=== PATIENT | female | born 1975 | race Hispanic/Latino ===

== ENCOUNTER 2020-05-03 10:35 | Outpatient (CLI) | payer BC, MEDICAID ==
[2020-05-03] MEDS ORDERED: LACTATED RINGERS 1,000 ML IV SCH (11:15)
[2020-05-03 11:49] LABS: Bilirubin,Urine NEG (Negative); Color,Urine Yellow (Yellow)
[2020-05-03 11:50] LABS: Blood,Urine NEG (Negative); Protein,Urine <15 mg/dL mg/dL (Negative); Urobilinogen,Urine < 2.0 mg/dL (<2.0)
[2020-05-03 12:14] VITALS: BP 139/76
== END 2020-05-03 12:33 | disposition home or self-care (01) ==
LOC: TRG 10:35 → APU 10:36 → TRG 12:33
PROVIDERS: ATTEND Obstetrics & Gynecology
DX: O09.892 Supervision of other high risk pregnancies, second trimester (principal); Z3A.25 25 weeks gestation of pregnancy
CPT/HCPCS: 59025; 81001; 93005

== ENCOUNTER 2020-06-22 09:14 | Emergency (ER) | payer BC, MEDICAID ==
[2020-06-22 10:00] VITALS: BP 108/59
--- NOTE | 2020-06-22 11:52 | Emergency Department Report ---
Chief Complaint: Nosebleed Stated Complaint: NOSE BLEED/COUGHING UP BLOOD Time Seen by Provider: 06/22/20 11:48 - HPI History of Present Illness: 45-year-old female (; 32 weeks gestation) presents to the emergency department with complaints of a nosebleed occurring this morning. Patient states she began to feel a "tickle" in her throat, followed by 1 episode of hemoptysis in which she produced 1 blood clot, followed immediately by epistaxis from the left nostril. No preceding fall, trauma, injury. Bleeding resolved spontaneously. Patient called her interactive art director, who instructed her to come to the emergency department for further evaluation. Due to her advanced maternal age, patient has been taking 1 baby aspirin daily throughout her . Patient is currently asymptomatic. She is scheduled to return to her interactive art director in 4 days. Denies fever, chills, cough, sneezing, ear pain, sore throat, chest pain, shortness of breath, wheezing, abdominal pain, pelvic pain, vaginal bleeding. Denies all other complaints at this time. - ROS Review of Systems: GENERAL: Negative for fever. CARDIOVASCULAR: Negative for chest pain. PULMONARY: Negative for shortness of breath. GASTROINTESTINAL: Negative for abdominal pain. MUSCULOSKELETAL: Negative for back pain. NEUROLOGICAL: Negative for headache. INTEGUMENTARY: Negative for rash. - Exam Vital Signs: Vital Signs 06/22/20 09:57 Temperature 98.2 F Pulse Rate 94 H Respiratory 13 Rate Blood Pressure 108/59 O2 Sat by Pulse 97 Oximetry Physical Exam: General: Awake and alert. No acute distress. Head: Atraumatic, normocephalic. Eyes: EOMI. Pupils are equal and round. Normal sclera and conjunctiva. ENT: Oral mucosa is moist. Normal pharyngeal exam. Neck: Supple. No lymphadenopathy. Pulmonary: No respiratory distress. Clear to auscultation bilaterally. Cardiac: Regular rate and rhythm. Pulses are palpable and equal bilaterally. No lower extremity cyanosis or edema. Skin: Warm and dry. No rashes. Abdomen: Soft, non-tender. No guarding, rigidity, or rebound. Bowel sounds are normal. Abdomen size consistent with reported gestational age. Back: Normal alignment. No CVA tenderness. Extremities: Symmetrical. Full range of motion intact. Neurological: Alert and oriented, appropriately interactive, no focal deficits. Psych: Cooperative. Appropriate mood and affect. Speech is evenly metered. Thoughts are logically construed. MSE screening note: Focused history and physical exam performed. Due to findings the following was ordered: ED Medical Decision Making - Medical Decision Making Patient presents to the emergency department for evaluation at the recomme ndation of her interactive art director following an episode of epistaxis at home earlier this morning. Patient reportedly coughed up a small blood clot when the epistaxis occurred. There was no preceding trauma. She is currently asymptomatic without complaints. She is afebrile. Vital signs are stable. She specifically denies abdominal pain, vaginal bleeding, syncope. She states she has continued to sense movement consistent with baseline. Patient is scheduled to return to her interactive art director in 4 days. There is no clinical indication for further diagnostic work-up on an emergent basis at this time. Patient will be discharged home to follow-up with her interactive art director on an outpatient basis as scheduled early next week. Patient expressed understanding and is agreeable to plan of care. Strict return precautions provided. ED Disposition for MSE Clinical Impression: Epistaxis Disposition: TO HOME OR SELFCARE Is pt being admited?: No Does the pt Need Aspirin: No Condition: Stable Instructions: Nosebleed, [id number] Additional Instructions: Follow-up with your interactive art director on Thursday as scheduled. Return to the emergency department immediately for new or worsening symptoms. Referrals: JOSE ALFREDO CLIFTON MD [Staff Physician] - 3-5 Days Time of Disposition: 11:52
== END 2020-06-22 12:53 | disposition home or self-care (01) ==
LOC: ED 09:14
DX: O26.893 Other specified pregnancy related conditions, third trimester (principal); R04.0 Epistaxis; Z3A.32 32 weeks gestation of pregnancy; Z98.890 Other specified postprocedural states
CPT/HCPCS: 99281

== ENCOUNTER 2020-08-13 14:35 | Inpatient (IN) | payer BC, MEDICAID ==
--- NOTE | 2020-08-13 16:40 | History and Physical Report ---
History of Present Illness Date of examination: 08/13/20 (pt here for IOL as per recommendation of MFM) Chief complaint: here for IOL History of present illness: EDC Confirmation: 08/15/2020 Gestational Age: 10 weeks Past History : 5 Term Births: 4 Premature Births: 0 Living Children: 4 Para: 4 Mult. Births: 0 Prev : 0 Aborta: 0 Elect. Ab: 0 Spont. Ab: 0 Ectopics: 0 # 1 Delivery date: 1993 Weeks Gestation: term labor: no Delivery type: Anesthesia type: epidural Delivery location: [place] Sex: Female # 2 Delivery date: 1997 Weeks Gestation: term labor: no Delivery type: Anesthesia type: none Delivery location: [place] Sex: Female # 3 Delivery date: 2000 Weeks Gestation: term labor: no Delivery type: Anesthesia type: none Infant Sex: Female # 4 Delivery date: 2005 Weeks Gestation: term labor: no Delivery type: Anesthesia type: none Delivery location: [place] Sex: Male Past Medical History: Reviewed history and no changes required: Anxiety: No on medications G E R D Past Surgical History: Reviewed history and no changes required: Cholecystectomy: 2007 Past Medical History Anesthesia Complications: negative Anemia: negative Autoimmune Disorder: negative Bleeding Disorder: negative Blood Transfusions: negative Breast Disease: negative Diabetes: negative Heart Disease: negative Hypertension: negative Hepatitis/Liver Disease: negative Kidney Disease/UTI: negative Neurologic/Epilepsy/Migraines: negative Phlebitis/Varicosities: negative Psychiatric: negative Pulmonary Disease/Asthma: negative Thyroid Disease: negative Hospitalizations: negative Surgery (Non-prosecuting attorney): Cholecystectomy: 2007 Abnormal PAP: negative CASIMIRO Exposure: negative Infertility: negative Uterine Anomaly: positive, polpys Uterine Surgery (not C/S): negative Other Gynecologic Problems: negative Family Hx: HTN: Mother, father, sister CA: Father DM: Grandmother Infection History Hx of STD: chlamydia HIV Risk Eval: no Hepatitis B Risk Eval: low risk Personal hx. of genital herpes: no Partner hx. of genital herpes: no Rash, Viral, or Febrile illness since last LMP? no Varicella/Chicken Pox Status: Previous Disease TB Risk: no Genetic History ADVANCED MATERNAL AGE Congenital Heart Defect: Mom: no Dad: unknown Roselyn Disease: Mom: no Dad: unknown Thalassemia Mom: no Dad: unknown Neural Tube Defect Mom: no Dad: unknown Down's Syndrome Mom: no Dad: unknown Dominik-Sachs Mom: no Dad: unknown Sickle Cell Disease/Trait Mom: no Dad: unknown Hemophilia Mom: no Dad: unknown Muscular Dystrophy Mom: no Dad: unknown Cystic Fibrosis Mom: no Dad: unknown [place] Chorea Mom: no Dad: unknown Mental Retardation Mom: no Dad: unknown Fragile X Mom: no Dad: unknown Other Genetic/Chromosomal Disorder Mom: no Dad: unknown Child w/other defect Mom: no Dad: unknown Enviromental Exposures Enviromental Exposures Reviewed Xray Exposure: no Medication, drug, or alcohol use since LMP: no Chemical/Other Exposure: no Exposure to Cat Liter: no Hx of Parvovirus (Fifth Disease): no Occupational Exposure to Children: none Active Medications: None Current Allergies (reviewed today): No known allergies Past History Past Medical History: GERD Past Surgical History: cholecystectomy - Obstetrical History Expected Date of Delivery: 08/15/20 Actual Gestation: 39 Week(s) 5 Day(s) : 6 Para: 4 Hx # Term Pregnancies: 4 Number of Pregnancies: 0 Spontaneous Abortions: 1 Induced : 0 Number of Living Children: 4 Medications and Allergies Allergies Allergy/AdvReac Type Severity Reaction Status Date / Time No Known Allergies Allergy Verified 05/03/20 11:12 Home Medications Medication Instructions Recorded Confirmed Last Taken Type Aspirin [Aspirin BABY CHEW TAB] 81 mg PO QDAY 08/13/20 08/13/20 08/12/20 History Benadryl 1 tab PO PRN PRN 08/13/20 08/13/20 08/12/20 History Pepcid 1 tab PO PRN PRN 08/13/20 08/13/20 08/12/20 History Vit-Fe Fumar-FA [ 1 tab PO QDAY 08/13/20 08/13/20 08/12/20 History Vitamin] Xanax TAB 1 tab PO PRN PRN 08/13/20 08/13/20 08/10/20 History Review of Systems All systems: negative - Vital Signs Vital signs: Vital Signs Pulse Pulse Ox 92 H 96 08/13/20 15:46 08/13/20 15:46 Temp Pulse Resp BP Pulse Ox 98.7 F 92 H 18 98/55 97 08/13/20 15:48 08/13/20 15:48 08/13/20 15:48 08/13/20 15:48 08/13/20 15:48 - Physical Exam Breasts: Positive: deferred Cardiovascular: Regular rate, Normal S1, Normal S2 Lungs: Positive: Normal air movement Abdomen: Positive: normal appearance, soft, normal bowel sounds. Negative: distention, tenderness Genitourinary (Female): Positive: normal external genitalia Vulva: both: normal Vagina: Positive: normal moisture. Negative: discharge Cervix: Negative: lesion, discharge Uterus: Positive: normal size, normal contour Adnexa: both: normal Anus/Rectum: Positive: normal perianal skin, heme negative. Negative: rectal mass, hemorrhoids Extremities: Positive: normal Deep Tendon Reflex Grade: Normal +2 - Obstetrical FHR: category 1 Uterine Contraction Monitor Mode: External Cervical Dilatation: 1 (per Nereyda RN) Cervical Effacement Percentage: 50 station: -3 Uterine Contraction Pattern: Irregular Uterine Tone Measurement Phase: Resting Uterine Contraction Intensity: Mild Results All other labs normal. GBS Negative HBsAg Screen Negative Negative *1 RPR Non Reactive Non Reactive *2 Rubella Antibodies, IgG [L] <0.90 index Immune >0.99 *3 Non-immune <0.90 Equivocal 0.90 - 0.99 Immune >0.99 ABO Grouping B *4 Rh Factor Negative Received Rhogam -- @ 28w Please note: Prior records for this patient's ABO / Rh type are not available for additional verification. Antibody Screen Negative Negative *6 WBC 7.4 x10E3/uL 3.4-10.8 *7 RBC 4.41 x10E6/uL 3.77-5.28 *8 Hemoglobin 12.7 g/dL 11.1-15.9 *9 Hematocrit 37.8 % 34.0-46.6 *10 MCV 86 fL 79-97 *11 MCH 28.8 pg 26.6-33.0 *12 MCHC 33.6 g/dL 31.5-35.7 *13 RDW 13.7 % 11.7-15.4 *14 Platelets 256 x10E3/uL 150-450 *15 Neutrophils 60 % Not Estab. *16 Lymphs 30 % Not Estab. *17 Monocytes 7 % Not Estab. *18 Eos 2 % Not Estab. *19 Basos 1 % Not Estab. *20 Neutrophils (Absolute) 4.5 x10E3/uL 1.4-7.0 *21 Lymphs (Absolute) 2.2 x10E3/uL 0.7-3.1 *22 Monocytes(Absolute) 0.5 x10E3/uL 0.1-0.9 *23 Eos (Absolute) 0.1 x10E3/uL 0.0-0.4 *24 Baso (Absolute) 0.0 x10E3/uL 0.0-0.2 *25 ! Immature Granulocytes 0 % Not Estab. *26 ! Immature Grans (Abs) 0.0 x10E3/uL 0.0-0.1 *27 Tests: (2) HIV Ag/Ab with Reflex ([id number]) HIV Screen 4th Generation wRfx Non Reactive Non Reactive *28 Tests: (3) HCV Ab w/Rflx to Verification ([id number]) ! HCV Ab <0.1 s/co ratio 0.0-0.9 *29 Tests: (4) Comment: ([id number]) ! Comment: SPR[facility] *30 Non reactive HCV antibody screen is consistent with no HCV infection, unless recent infection is suspected or other evidence exists to indicate HCV infection. Effective April 09, 2020 HCV Ab w/Rflx to Verification will be made non-orderable as it no longer aligns with clinical guidelines for the detection of HCV infection. Current guidelines recommend the use of a HCV reflex panel that includes antibody testing with reflex of positive specimens to HCV RNA testing. [facility] offers order code #[id number] HCV Antibody reflex to Qualitative [facility]. Tests: (5) Urine Culture, Routine ([id number]) Urine Culture, Routine Final report (C) *31 Tests: (6) Result ([id number]) ! Result 1 No growth (C) *32 Assessment and Plan 45yo @ 39w5d for IOL Will use Cervidil tonight. GBS negative All orders in EMR Dr Hernandes aware - Patient Problems (1) Rh negative, maternal Onset Date: ~08/13/20 Current Visit: Yes Status: Acute Qualifiers: Trimester: third trimester Qualified Code(s): O26.893 - Other specified related conditions, third trimester; Z67.91 - Unspecified blood type, Rh negative Plan to address problem: Rhogam given @ 28w gestation Blood type of NB to determine need post delivery (2) Rubella non-immune status, antepartum Onset Date: ~08/13/20 Current Visit: Yes Status: Acute Plan to address problem: Recommend MMR post delivery (3) GERD (gastroesophageal reflux disease) Onset Date: ~08/13/20 Current Visit: Yes Status: Acute Qualifiers: Esophagitis presence: esophagitis presence not specified Qualified Code(s): K21.9 - Gastro-esophageal reflux disease without esophagitis Plan to address problem: Pt did not take her pepcid today order for QD pepcid in EMR (4) Advanced maternal age, 40 years or greater Onset Date: ~08/13/20 Current Visit: Yes Status: Acute Plan to address problem: [facility] pt to be induced @ this gestation due to AMA (5) BMI 45.0-49.9, adult Onset Date: ~08/13/20 Current Visit: Yes Status: Acute Plan to address problem: Pt has gained 46+ pounds with this
[2020-08-13] MEDS ORDERED: miSOPROStol 200 MCG TAB PR PRN (16:42)
[2020-08-13] MEDS ORDERED: DINOPROSTONE 10 MG VAG SUPP VG NR (16:42)
[2020-08-13] MEDS ORDERED: OXYTOCIN 10 UNIT/1 ML INJ IM PRN (16:42)
[2020-08-13] MEDS ORDERED: ONDANSETRON 4 MG/2 ML INJ IV PRN (16:42)
[2020-08-13] MEDS ORDERED: NalbUPHINE 10 MG/1 ML INJ IV PRN (16:42)
[2020-08-13] MEDS ORDERED: fentaNYL 100 MCG/2 ML INJ IV PRN (16:42)
[2020-08-13] MEDS ORDERED: MINERAL OIL 30 ML ORAL LIQD PO PRN (16:42)
[2020-08-13] MEDS ORDERED: LOPERAMIDE 2 MG CAP PO PRN (16:42)
[2020-08-13] MEDS ORDERED: ACETAMINOPHEN 325 MG TAB PO PRN (16:42)
[2020-08-13] MEDS ORDERED: LIDOCAINE (2%) 20 MG/1 ML VIAL 20 ML MDV INFILTRATI ONE (16:42)
[2020-08-13] MEDS ORDERED: TERBUTALINE 1 MG/1 ML INJ SUB-Q PRN (16:42)
[2020-08-13] MEDS ORDERED: METHYLERGONOVINE MALEATE 0.2 MG/ML VIAL IM PRN (16:42)
[2020-08-13] MEDS ORDERED: ePHEDrine SULFATE 50 MG/1 ML INJ IV PRN (16:42)
[2020-08-13] MEDS ORDERED: CARBOPROST TROMETHAMINE 250 MCG/1 ML INJ IM PRN (16:42)
[2020-08-13] MEDS ORDERED: OXYTOCIN DRIP 30 UNITS/500 ML BAG IV SCH ×2 (17:00)
[2020-08-13] MEDS: LACTATED RINGERS 1,000 ML IV SCH (17:03)
[2020-08-13] MEDS: FAMOTIDINE 20 MG/2 ML INJ IV SCH (17:03)
[2020-08-13 17:28] LABS: Hematocrit 32.2 % (30.3-42.9); Hemoglobin 10.9 gm/dl (10.1-14.3); Mean Corpuscular HGB Conc 34 % (30-34); Mean Corpuscular Volume 77 fl (79-97); Platelet Count 287 K/mm3 (140-440); Red Cell Distribution Width 15.7 % (13.2-15.2)
[2020-08-13] MEDS: diphenhydrAMINE 25 MG CAP PO PRN (21:21)
--- NOTE | 2020-08-14 06:39 | Progress Note ---
Assessment and Plan pt had cervidil removed @ 0500. Pt states she is having some irregular ctx. FHR Cat 1. P: AM care, diet, start pitocin per protocol. Pt is anxious to get her epidural. Explained she has to be in labor, cervical chg, SROM. Spoke with Nichole RN @ POC - Patient Problems (1) Rh negative, maternal Onset Date: ~08/13/20 Current Visit: Yes Status: Acute Qualifiers: Trimester: third trimester Qualified Code(s): O26.893 - Other specified related conditions, third trimester; Z67.91 - Unspecified blood type, Rh negative (2) Rubella non-immune status, antepartum Onset Date: ~08/13/20 Current Visit: Yes Status: Acute (3) GERD (gastroesophageal reflux disease) Onset Date: ~08/13/20 Current Visit: Yes Status: Acute Qualifiers: Esophagitis presence: esophagitis presence not specified Qualified Code(s): K21.9 - Gastro-esophageal reflux disease without esophagitis (4) Advanced maternal age, 40 years or greater Onset Date: ~08/13/20 Current Visit: Yes Status: Acute (5) BMI 45.0-49.9, adult Onset Date: ~08/13/20 Current Visit: Yes Status: Acute (6) Dizziness Onset Date: ~08/14/20 Current Visit: Yes Status: Acute Plan to address problem: Pt c/o dizziness this morning that is"in my head" Pt states she can be up and walks w/o difficulty. Instructed pt to not be OOB w/o assistance. Pt thinks it is occurring because of the hormones of . Pt did c/o being dizzy prior to admission. Offered an antihistamine if poss fluid inner ear. Pt denies vertigo. Will consult with Dr Piedra Subjective - Subjective Date of service: 08/14/20 (pt c/o dizziness and anxiety) Principal diagnosis: IUP @ 39w5d IOL Interval history: EDC Confirmation: 08/15/2020 Gestational Age: 10 weeks Past History : 5 Term Births: 4 Premature Births: 0 Living Children: 4 Para: 4 Mult. Births: 0 Prev : 0 Aborta: 0 Elect. Ab: 0 Spont. Ab: 0 Ectopics: 0 # 1 Delivery date: 1993 Weeks Gestation: term labor: no Delivery type: Anesthesia type: epidural Delivery location: [place] [facility] Sex: Female # 2 Delivery date: 1997 Weeks Gestation: term labor: no Delivery type: Anesthesia type: none Delivery location: [place] [facility] Sex: Female # 3 Delivery date: 2000 Weeks Gestation: term labor: no Delivery type: Anesthesia type: none Sex: Female # 4 Delivery date: 2006 Weeks Gestation: term labor: no Delivery type: Anesthesia type: none Delivery location: [place] [facility] Sex: Male Past Medical History: Reviewed history and no changes required: Anxiety: No on medications G E R D Past Surgical History: Reviewed history and no changes required: Cholecystectomy: 2007 Past Medical History Anesthesia Complications: negative Anemia: negative Autoimmune Disorder: negative Bleeding Disorder: negative Blood Transfusions: negative Breast Disease: negative Diabetes: negative Heart Disease: negative Hypertension: negative Hepatitis/Liver Disease: negative Kidney Disease/UTI: negative Neurologic/Epilepsy/Migraines: negative Phlebitis/Varicosities: negative Psychiatric: negative Pulmonary Disease/Asthma: negative Thyroid Disease: negative Hospitalizations: negative Surgery (Non-air export agent): Cholecystectomy: 2007 Abnormal PAP: negative CASIMIRO Exposure: negative Infertility: negative Uterine Anomaly: positive, polpys Uterine Surgery (not C/S): negative Other Gynecologic Problems: negative Family Hx: HTN: Mother, father, sister CA: Father DM: Grandmother Infection History Hx of STD: chlamydia HIV Risk Eval: no Hepatitis B Risk Eval: low risk Personal hx. of genital herpes: no Partner hx. of genital herpes: no Rash, Viral, or Febrile illness since last LMP? no Varicella/Chicken Pox Status: Previous Disease TB Risk: no Genetic History ADVANCED MATERNAL AGE Congenital Heart Defect: Mom: no Dad: unknown Roselyn Disease: Mom: no Dad: unknown Thalassemia Mom: no Dad: unknown Neural Tube Defect Mom: no Dad: unknown Down's Syndrome Mom: no Dad: unknown Dominik-Sachs Mom: no Dad: unknown Sickle Cell Disease/Trait Mom: no Dad: unknown Hemophilia Mom: no Dad: unknown Muscular Dystrophy Mom: no Dad: unknown Cystic Fibrosis Mom: no Dad: unknown Maricao Chorea Mom: no Dad: unknown Mental Retardation Mom: no Dad: unknown Fragile X Mom: no Dad: unknown Other Genetic/Chromosomal Disorder Mom: no Dad: unknown Child w/other defect Mom: no Dad: unknown Enviromental Exposures Enviromental Exposures Reviewed Xray Exposure: no Medication, drug, or alcohol use since LMP: no Chemical/Other Exposure: no Exposure to Cat Liter: no Hx of Parvovirus (Fifth Disease): no Occupational Exposure to Children: none Active Medications: None Current Allergies (reviewed today): No known allergies Patient reports: movement normal Objective - Vital Signs Vital Signs: Vital Signs - 12hr 08/13/20 08/13/20 08/13/20 18:55 19:02 19:04 Temperature Pulse Rate 65 97 H 109 H Respiratory Rate Blood Pressure 115/59 O2 Sat by Pulse 87 96 Oximetry 08/13/20 08/13/20 08/13/20 19:38 20:40 20:45 Temperature 98.3 F Pulse Rate 89 94 H Respiratory 12 Rate Blood Pressure 109/60 O2 Sat by Pulse 100 97 97 Oximetry 08/13/20 08/13/20 08/13/20 20:50 20:55 21:00 Temperature Pulse Rate 87 86 86 Respiratory Rate Blood Pressure O2 Sat by Pulse 97 96 96 Oximetry 08/13/20 08/13/20 08/13/20 21:05 21:10 21:15 Temperature Pulse Rate 95 H 89 86 Respiratory Rate Blood Pressure O2 Sat by Pulse 97 96 96 Oximetry 08/13/20 08/13/20 08/13/20 21:20 21:25 21:30 Temperature Pulse Rate 85 85 89 Respiratory Rate Blood Pressure O2 Sat by Pulse 96 97 96 Oximetry 08/13/20 08/13/20 08/13/20 21:32 21:35 21:40 Temperature Pulse Rate 88 88 88 Respiratory Rate Blood Pressure O2 Sat by Pulse 94 96 94 Oximetry 08/13/20 08/13/20 08/13/20 21:45 21:50 21:57 Temperature Pulse Rate 86 93 H 90 Respiratory Rate Blood Pressure O2 Sat by Pulse 94 94 97 Oximetry 08/13/20 08/13/20 08/13/20 22:02 22:07 22:12 Temperature Pulse Rate 93 H 93 H 90 Respiratory Rate Blood Pressure O2 Sat by Pulse 95 96 96 Oximetry 08/13/20 08/13/20 08/13/20 22:17 22:19 22:22 Temperature Pulse Rate 98 H 86 88 Respiratory Rate Blood Pressure O2 Sat by Pulse 95 94 95 Oximetry 08/13/20 08/13/20 08/13/20 22:25 22:27 22:32 Temperature Pulse Rate 86 86 91 H Respiratory Rate Blood Pressure O2 Sat by Pulse 94 96 95 Oximetry 08/13/20 08/13/20 08/13/20 22:37 22:38 22:42 Temperature Pulse Rate 87 87 84 Respiratory Rate Blood Pressure O2 Sat by Pulse 95 94 95 Oximetry 08/13/20 08/13/20 08/13/20 22:46 22:47 22:52 Temperature Pulse Rate 85 84 83 Respiratory Rate Blood Pressure O2 Sat by Pulse 94 95 94 Oximetry 08/13/20 08/13/20 08/13/20 22:55 22:57 23:01 Temperature Pulse Rate 82 85 80 Respiratory Rate Blood Pressure O2 Sat by Pulse 94 95 94 Oximetry 08/13/20 08/13/20 08/13/20 23:02 23:07 23:12 Temperature Pulse Rate 83 85 88 Respiratory Rate Blood Pressure O2 Sat by Pulse 94 96 97 Oximetry 08/13/20 08/13/20 08/13/20 23:17 23:22 23:30 Temperature Pulse Rate 91 H 84 40 L Respiratory Rate Blood Pressure O2 Sat by Pulse 96 96 85 Oximetry 08/13/20 08/13/20 08/13/20 23:35 23:40 23:45 Temperature Pulse Rate 92 H 91 H 83 Respiratory Rate Blood Pressure O2 Sat by Pulse 96 96 96 Oximetry 08/13/20 08/13/20 08/14/20 23:50 23:55 00:00 Temperature Pulse Rate 83 88 78 Respiratory Rate Blood Pressure O2 Sat by Pulse 96 96 97 Oximetry 08/14/20 08/14/20 08/14/20 00:05 00:10 00:15 Temperature Pulse Rate 76 76 81 Respiratory Rate Blood Pressure O2 Sat by Pulse 96 96 95 Oximetry 08/14/20 08/14/20 08/14/20 00:17 00:20 00:25 Temperature Pulse Rate 90 69 71 Respiratory Rate Blood Pressure O2 Sat by Pulse 94 96 96 Oximetry 08/14/20 08/14/20 08/14/20 00:30 00:35 00:40 Temperature Pulse Rate 81 77 78 Respiratory Rate Blood Pressure O2 Sat by Pulse 95 97 96 Oximetry 08/14/20 08/14/20 08/14/20 00:45 00:48 00:50 Temperature Pulse Rate 74 79 74 Respiratory Rate Blood Pressure O2 Sat by Pulse 96 94 96 Oximetry 08/14/20 08/14/20 08/14/20 00:55 01:00 01:05 Temperature Pulse Rate 79 79 77 Respiratory Rate Blood Pressure O2 Sat by Pulse 95 95 95 Oximetry 08/14/20 08/14/20 08/14/20 01:10 01:15 01:20 Temperature Pulse Rate 78 79 76 Respiratory Rate Blood Pressure O2 Sat by Pulse 96 96 96 Oximetry 08/14/20 08/14/20 08/14/20 01:25 01:26 01:30 Temperature Pulse Rate 82 79 80 Respiratory Rate Blood Pressure O2 Sat by Pulse 95 94 95 Oximetry 08/14/20 08/14/20 08/14/20 01:33 01:35 01:40 Temperature Pulse Rate 81 80 78 Respiratory Rate Blood Pressure O2 Sat by Pulse 94 95 95 Oximetry 08/14/20 08/14/20 08/14/20 01:45 01:49 01:50 Temperature Pulse Rate 78 97 H 83 Respiratory Rate Blood Pressure O2 Sat by Pulse 95 94 95 Oximetry 08/14/20 08/14/20 08/14/20 01:54 01:55 01:59 Temperature Pulse Rate 75 78 77 Respiratory Rate Blood Pressure O2 Sat by Pulse 94 94 94 Oximetry 08/14/20 08/14/20 08/14/20 02:00 02:05 02:10 Temperature Pulse Rate 77 75 71 Respiratory Rate Blood Pressure O2 Sat by Pulse 95 94 96 Oximetry 08/14/20 08/14/20 08/14/20 02:12 02:15 02:18 Temperature Pulse Rate 75 75 75 Respiratory Rate Blood Pressure O2 Sat by Pulse 94 95 94 Oximetry 08/14/20 08/14/20 08/14/20 02:20 02:24 02:25 Temperature Pulse Rate 70 79 93 H Respiratory Rate Blood Pressure O2 Sat by Pulse 95 94 97 Oximetry 08/14/20 08/14/20 08/14/20 02:30 02:35 02:40 Temperature Pulse Rate 79 82 83 Respiratory Rate Blood Pressure O2 Sat by Pulse 96 97 97 Oximetry 08/14/20 08/14/20 08/14/20 02:45 02:50 02:57 Temperature Pulse Rate 82 84 101 H Respiratory Rate Blood Pressure O2 Sat by Pulse 96 97 98 Oximetry 08/14/20 08/14/20 08/14/20 03:02 03:07 03:12 Temperature Pulse Rate 86 82 82 Respiratory Rate Blood Pressure O2 Sat by Pulse 95 96 97 Oximetry 08/14/20 08/14/20 08/14/20 03:17 03:21 03:22 Temperature Pulse Rate 85 77 78 Respiratory Rate Blood Pressure O2 Sat by Pulse 96 94 95 Oximetry 08/14/20 08/14/20 08/14/20 03:27 03:32 03:37 Temperature Pulse Rate 79 77 76 Respiratory Rate Blood Pressure O2 Sat by Pulse 94 94 95 Oximetry 08/14/20 08/14/20 08/14/20 03:38 03:42 03:45 Temperature Pulse Rate 74 76 87 Respiratory Rate Blood Pressure O2 Sat by Pulse 94 94 94 Oximetry 08/14/20 08/14/20 08/14/20 03:47 03:51 03:52 Temperature Pulse Rate 84 99 H 89 Respiratory Rate Blood Pressure O2 Sat by Pulse 96 91 93 Oximetry 08/14/20 08/14/20 08/14/20 03:57 04:02 04:07 Temperature Pulse Rate 75 76 72 Respiratory Rate Blood Pressure O2 Sat by Pulse 96 96 95 Oximetry 08/14/20 08/14/20 08/14/20 04:12 04:17 04:22 Temperature Pulse Rate 71 73 74 Respiratory Rate Blood Pressure O2 Sat by Pulse 95 95 96 Oximetry 08/14/20 08/14/20 08/14/20 04:27 04:32 04:35 Temperature Pulse Rate 69 73 75 Respiratory Rate Blood Pressure O2 Sat by Pulse 96 95 94 Oximetry 08/14/20 08/14/20 08/14/20 04:37 04:42 04:43 Temperature Pulse Rate 86 81 86 Respiratory Rate Blood Pressure O2 Sat by Pulse 96 96 93 Oximetry 08/14/20 08/14/20 08/14/20 04:47 04:52 04:57 Temperature Pulse Rate 91 H 81 94 H Respiratory Rate Blood Pressure O2 Sat by Pulse 98 98 98 Oximetry 08/14/20 08/14/20 08/14/20 05:02 05:07 05:12 Temperature Pulse Rate 99 H 94 H 98 H Respiratory Rate Blood Pressure O2 Sat by Pulse 99 98 99 Oximetry 08/14/20 08/14/20 08/14/20 05:17 05:22 05:23 Temperature Pulse Rate 87 89 86 Respiratory Rate Blood Pressure 123/71 O2 Sat by Pulse 97 98 Oximetry 08/14/20 08/14/20 08/14/20 05:27 05:38 05:43 Temperature Pulse Rate 81 83 89 Respiratory Rate Blood Pressure O2 Sat by Pulse 98 97 96 Oximetry 08/14/20 08/14/20 08/14/20 05:45 05:48 05:52 Temperature Pulse Rate 80 96 H 90 Respiratory Rate Blood Pressure O2 Sat by Pulse 94 95 94 Oximetry 08/14/20 08/14/20 08/14/20 05:53 05:58 06:03 Temperature Pulse Rate 91 H 90 84 Respiratory Rate Blood Pressure O2 Sat by Pulse 96 95 96 Oximetry 08/14/20 08/14/20 08/14/20 06:08 06:13 06:16 Temperature Pulse Rate 85 88 88 Respiratory Rate Blood Pressure O2 Sat by Pulse 96 96 94 Oximetry 08/14/20 08/14/20 08/14/20 06:18 06:23 06:28 Temperature Pulse Rate 86 84 91 H Respiratory Rate Blood Pressure O2 Sat by Pulse 96 96 93 Oximetry 08/14/20 06:33 Temperature Pulse Rate 97 H Respiratory Rate Blood Pressure O2 Sat by Pulse 97 Oximetry - Exam Breasts: deferred Cardiovascular: Regular rate Lungs: Normal air movement Abdomen: Present: normal appearance, soft. Absent: distention, tenderness Uterus: Present: normal FHR: auscultation normal, category 1 Uterine Contraction Monitor Mode: External Uterine Contraction Pattern: Irregular Uterine Tone Measurement Phase: Resting Uterine Contraction Intensity: Mild Extremities: normal Deep Tendon Reflex Grade: Normal +2 - Labs Labs: Abnormal Labs 08/13/20 15:45 MCV 77 L MCH 26 L RDW 15.7 H Laboratory Results - last 24 hr 08/13/20 08/13/20 08/13/20 15:45 15:45 15:45 WBC 10.5 RBC 4.20 Hgb 10.9 Hct 32.2 MCV 77 L MCH 26 L MCHC 34 RDW 15.7 H Plt Count 287 Syphilis IgG Antibody Nonreactive Blood Type B NEGATIVE Antibody Screen Positive Antibody Identification Anti-D (Passively Aquired)
[2020-08-14] MEDS: PSEUDOEPHEDRINE 30 MG TAB PO PRN ×2 (06:54→15:43)
[2020-08-14] MEDS ORDERED: DINOPROSTONE 10 MG VAG SUPP VG NR (09:00)
[2020-08-14] MEDS ORDERED: OXYTOCIN DRIP 30 UNITS/500 ML BAG IV SCH (09:00)
[2020-08-14] MEDS: LACTATED RINGERS 1,000 ML IV SCH (10:24)
[2020-08-14] MEDS: FAMOTIDINE 20 MG/2 ML INJ IV SCH (10:25)
[2020-08-14] MEDS ORDERED: ACETAMINOPHEN 325 MG TAB PO PRN (16:46)
[2020-08-14] MEDS ORDERED: ACETAMINOPHEN 500 MG TAB PO PRN (17:00)
--- NOTE | 2020-08-14 19:03 | Ultrasound Report ---
US OB limited INDICATION / CLINICAL INFORMATION: presentation. COMPARISON: None available. FINDINGS: lie is currently cephalic. Heart rate is 178. IMPRESSION: 1. lie is cephalic. Signer Name: Lazaro Jennings MD Signed: 08/14/2020 6:59 PM Workstation Name: [id number]
--- NOTE | 2020-08-14 19:59 | Progress Note ---
Assessment and Plan Again discussed serial induction of labor. Patient second Cervidil was placed at 11 AM to be removed at 11 PM. Patient is very anxious about Pitocin induction and augmentation. Options for induction were reviewed including but not limited to, another Cervidil, Cytotec and low-dose Pitocin. Patient very anxious with about pitocin d/t a bad experience she had with her last delivery and pitocin. Discussed erratic, uncontrolled response with Cytotec that would possibly make this method for suboptimal and lead to increased risk. She has had 2 cervidil w/o cervical change. This limits options for IOL. She was informed I will need to proceed with a c/s and will re-evaluate her after the procedure is complete. She voiced understanding - Patient Problems (1) 39 weeks gestation of Current Visit: Yes Status: Acute (2) Advanced maternal age, 40 years or greater Onset Date: ~08/13/20 Current Visit: Yes Status: Chronic (3) Anxiety Current Visit: Yes Status: Chronic (4) BMI 45.0-49.9, adult Onset Date: ~08/13/20 Current Visit: Yes Status: Chronic (5) Dizziness Onset Date: ~08/14/20 Current Visit: Yes Status: Acute (6) Rh negative, maternal Onset Date: ~08/13/20 Current Visit: Yes Status: Acute Qualifiers: Trimester: third trimester Qualified Code(s): O26.893 - Other specified related conditions, third trimester; Z67.91 - Unspecified blood type, Rh negative (7) Rubella non-immune status, antepartum Onset Date: ~08/13/20 Current Visit: Yes Status: Acute Subjective - Subjective Date of service: 08/14/20 Principal diagnosis: IUP @ 39w6d IOL for AMA per [facility] Patient reports: movement normal Objective - Vital Signs Vital Signs: Vital Signs - 12hr 08/14/20 08/14/20 08/14/20 07:27 07:30 07:32 Temperature 98.1 F Pulse Rate 90 91 H Respiratory 16 Rate Blood Pressure O2 Sat by Pulse 97 96 Oximetry 08/14/20 08/14/20 08/14/20 07:37 07:42 07:44 Temperature Pulse Rate 91 H 93 H 92 H Respiratory Rate Blood Pressure O2 Sat by Pulse 96 96 94 Oximetry 08/14/20 08/14/20 08/14/20 07:47 07:50 07:52 Temperature Pulse Rate 95 H 96 H 92 H Respiratory Rate Blood Pressure O2 Sat by Pulse 95 94 96 Oximetry 08/14/20 08/14/20 08/14/20 07:57 08:02 08:07 Temperature Pulse Rate 96 H 96 H 89 Respiratory Rate Blood Pressure O2 Sat by Pulse 96 95 98 Oximetry 08/14/20 08/14/20 08/14/20 08:12 08:17 08:22 Temperature Pulse Rate 95 H 96 H 94 H Respiratory Rate Blood Pressure O2 Sat by Pulse 96 97 98 Oximetry 08/14/20 08/14/20 08/14/20 08:27 08:32 08:37 Temperature Pulse Rate 104 H 105 H 97 H Respiratory Rate Blood Pressure O2 Sat by Pulse 97 97 97 Oximetry 08/14/20 08/14/20 08/14/20 08:42 08:47 08:52 Temperature Pulse Rate 95 H 91 H 101 H Respiratory Rate Blood Pressure O2 Sat by Pulse 96 96 97 Oximetry 08/14/20 08/14/20 08/14/20 08:57 09:02 09:07 Temperature Pulse Rate 101 H 108 H 109 H Respiratory Rate Blood Pressure O2 Sat by Pulse 96 97 96 Oximetry 08/14/20 08/14/20 08/14/20 09:12 09:17 09:22 Temperature Pulse Rate 114 H 107 H 111 H Respiratory Rate Blood Pressure O2 Sat by Pulse 96 95 94 Oximetry 08/14/20 08/14/20 08/14/20 09:27 09:31 09:32 Temperature Pulse Rate 106 H 102 H 101 H Respiratory Rate Blood Pressure O2 Sat by Pulse 97 94 95 Oximetry 08/14/20 08/14/20 08/14/20 09:37 09:44 09:47 Temperature Pulse Rate 101 H 95 H 112 H Respiratory Rate Blood Pressure O2 Sat by Pulse 96 96 94 Oximetry 08/14/20 08/14/20 08/14/20 09:49 09:54 09:59 Temperature Pulse Rate 115 H 102 H 102 H Respiratory Rate Blood Pressure O2 Sat by Pulse 96 96 97 Oximetry 08/14/20 08/14/20 08/14/20 10:04 10:09 10:14 Temperature Pulse Rate 99 H 98 H 98 H Respiratory Rate Blood Pressure O2 Sat by Pulse 96 94 96 Oximetry 08/14/20 08/14/20 08/14/20 10:15 10:19 10:24 Temperature 97.4 F L Pulse Rate 99 H 105 H Respiratory Rate Blood Pressure O2 Sat by Pulse 97 97 Oximetry 08/14/20 08/14/20 08/14/20 10:29 10:34 10:35 Temperature Pulse Rate 102 H 95 H 104 H Respiratory Rate Blood Pressure O2 Sat by Pulse 96 97 93 Oximetry 08/14/20 08/14/20 08/14/20 10:39 10:44 10:49 Temperature Pulse Rate 105 H 100 H 98 H Respiratory Rate Blood Pressure O2 Sat by Pulse 96 97 96 Oximetry 08/14/20 08/14/20 08/14/20 10:54 10:59 11:04 Temperature Pulse Rate 105 H 103 H 105 H Respiratory Rate Blood Pressure O2 Sat by Pulse 97 97 97 Oximetry 08/14/20 08/14/20 08/14/20 11:09 11:14 11:19 Temperature Pulse Rate 98 H 99 H 99 H Respiratory Rate Blood Pressure O2 Sat by Pulse 97 96 97 Oximetry 08/14/20 08/14/20 08/14/20 11:24 11:29 11:34 Temperature Pulse Rate 102 H 96 H 96 H Respiratory Rate Blood Pressure O2 Sat by Pulse 97 95 96 Oximetry 08/14/20 08/14/20 08/14/20 11:37 11:39 11:44 Temperature Pulse Rate 94 H 99 H 100 H Respiratory Rate Blood Pressure O2 Sat by Pulse 94 96 96 Oximetry 08/14/20 08/14/20 08/14/20 11:49 11:54 11:59 Temperature Pulse Rate 99 H 101 H 96 H Respiratory Rate Blood Pressure O2 Sat by Pulse 96 96 97 Oximetry 08/14/20 08/14/20 08/14/20 12:01 12:04 12:09 Temperature Pulse Rate 100 H 92 H 98 H Respiratory Rate Blood Pressure O2 Sat by Pulse 94 96 97 Oximetry 08/14/20 08/14/20 08/14/20 12:14 12:23 12:28 Temperature Pulse Rate 92 H 93 H 97 H Respiratory Rate Blood Pressure O2 Sat by Pulse 95 97 97 Oximetry 08/14/20 08/14/20 08/14/20 12:33 12:38 12:43 Temperature Pulse Rate 91 H 89 95 H Respiratory Rate Blood Pressure O2 Sat by Pulse 95 96 95 Oximetry 08/14/20 08/14/20 08/14/20 12:48 12:53 12:58 Temperature Pulse Rate 92 H 88 94 H Respiratory Rate Blood Pressure O2 Sat by Pulse 96 96 96 Oximetry 08/14/20 08/14/20 08/14/20 13:03 13:05 13:08 Temperature Pulse Rate 98 H 105 H 92 H Respiratory Rate Blood Pressure O2 Sat by Pulse 96 92 97 Oximetry 08/14/20 08/14/20 08/14/20 13:13 13:18 13:23 Temperature Pulse Rate 97 H 101 H 98 H Respiratory Rate Blood Pressure O2 Sat by Pulse 97 97 95 Oximetry 08/14/20 08/14/20 08/14/20 13:28 13:33 13:38 Temperature Pulse Rate 88 86 91 H Respiratory Rate Blood Pressure O2 Sat by Pulse 97 97 98 Oximetry 08/14/20 08/14/20 08/14/20 13:43 13:48 13:53 Temperature Pulse Rate 88 89 88 Respiratory Rate Blood Pressure O2 Sat by Pulse 98 98 98 Oximetry 08/14/20 08/14/20 08/14/20 13:58 14:00 14:03 Temperature 98.1 F Pulse Rate 90 91 H Respiratory Rate Blood Pressure O2 Sat by Pulse 98 97 Oximetry 08/14/20 08/14/20 08/14/20 14:08 14:13 14:18 Temperature Pulse Rate 93 H 100 H 92 H Respiratory Rate Blood Pressure O2 Sat by Pulse 97 97 98 Oximetry 08/14/20 08/14/20 08/14/20 14:23 14:28 14:33 Temperature Pulse Rate 91 H 92 H 91 H Respiratory Rate Blood Pressure 119/67 O2 Sat by Pulse 99 98 98 Oximetry 08/14/20 08/14/20 08/14/20 14:38 14:43 14:48 Temperature Pulse Rate 93 H 92 H 91 H Respiratory Rate Blood Pressure O2 Sat by Pulse 98 97 98 Oximetry 08/14/20 08/14/20 08/14/20 15:00 15:05 15:10 Temperature Pulse Rate 96 H 94 H 95 H Respiratory Rate Blood Pressure O2 Sat by Pulse 97 96 97 Oximetry 08/14/20 08/14/20 08/14/20 15:15 15:20 15:25 Temperature Pulse Rate 90 97 H 92 H Respiratory Rate Blood Pressure O2 Sat by Pulse 96 96 97 Oximetry 08/14/20 08/14/20 08/14/20 15:30 15:35 15:38 Temperature Pulse Rate 100 H 98 H 95 H Respiratory Rate Blood Pressure O2 Sat by Pulse 96 96 94 Oximetry 08/14/20 08/14/20 08/14/20 15:40 15:45 15:50 Temperature Pulse Rate 96 H 98 H 94 H Respiratory Rate Blood Pressure O2 Sat by Pulse 96 97 97 Oximetry 08/14/20 08/14/20 08/14/20 15:55 16:00 16:03 Temperature 97.9 F Pulse Rate 98 H 97 H 98 H Respiratory Rate Blood Pressure O2 Sat by Pulse 95 95 94 Oximetry 08/14/20 08/14/20 08/14/20 16:05 16:10 16:15 Temperature Pulse Rate 99 H 90 91 H Respiratory Rate Blood Pressure O2 Sat by Pulse 95 96 96 Oximetry 08/14/20 08/14/20 08/14/20 16:17 16:20 16:25 Temperature Pulse Rate 104 H 90 92 H Respiratory Rate Blood Pressure O2 Sat by Pulse 92 98 97 Oximetry 08/14/20 08/14/20 08/14/20 16:30 16:35 16:40 Temperature Pulse Rate 99 H 87 99 H Respiratory Rate Blood Pressure O2 Sat by Pulse 96 96 97 Oximetry 08/14/20 08/14/20 08/14/20 16:45 16:50 16:55 Temperature Pulse Rate 91 H 110 H 104 H Respiratory Rate Blood Pressure O2 Sat by Pulse 98 97 96 Oximetry 08/14/20 08/14/20 08/14/20 17:00 17:05 17:10 Temperature Pulse Rate 88 98 H 92 H Respiratory Rate Blood Pressure O2 Sat by Pulse 95 97 96 Oximetry 08/14/20 08/14/20 08/14/20 17:13 17:15 17:20 Temperature Pulse Rate 94 H 87 90 Respiratory Rate Blood Pressure O2 Sat by Pulse 94 97 97 Oximetry 08/14/20 08/14/20 08/14/20 17:25 17:30 17:39 Temperature Pulse Rate 90 87 102 H Respiratory Rate Blood Pressure O2 Sat by Pulse 97 96 97 Oximetry 08/14/20 08/14/20 08/14/20 17:44 17:49 17:54 Temperature Pulse Rate 104 H 89 84 Respiratory Rate Blood Pressure O2 Sat by Pulse 94 98 96 Oximetry 08/14/20 08/14/20 08/14/20 17:59 18:04 18:09 Temperature Pulse Rate 92 H 90 88 Respiratory Rate Blood Pressure O2 Sat by Pulse 97 97 97 Oximetry 08/14/20 08/14/20 08/14/20 18:14 18:19 18:20 Temperature Pulse Rate 92 H 92 H 89 Respiratory Rate Blood Pressure 114/65 O2 Sat by Pulse 97 97 Oximetry 08/14/20 08/14/20 08/14/20 18:24 18:29 18:34 Temperature Pulse Rate 92 H 87 91 H Respiratory Rate Blood Pressure O2 Sat by Pulse 97 97 97 Oximetry 08/14/20 08/14/20 08/14/20 18:39 18:44 18:49 Temperature Pulse Rate 87 101 H 85 Respiratory Rate Blood Pressure O2 Sat by Pulse 96 96 97 Oximetry 08/14/20 08/14/20 08/14/20 18:50 18:54 18:59 Temperature 97.8 F Pulse Rate 90 88 Respiratory Rate Blood Pressure O2 Sat by Pulse 97 97 Oximetry 08/14/20 08/14/20 08/14/20 19:04 19:09 19:14 Temperature Pulse Rate 93 H 86 114 H Respiratory Rate Blood Pressure O2 Sat by Pulse 96 97 96 Oximetry 08/14/20 08/14/20 19:19 19:24 Temperature Pulse Rate 94 H 96 H Respiratory Rate Blood Pressure 120/58 O2 Sat by Pulse 98 97 Oximetry - Exam Lungs: Normal air movement Abdomen: Present: soft. Absent: tenderness Vulva: both: normal Uterus: Present: fundal height above umbilicus FHR: category 1 Cervical Dilatation: 0.5 Cervical Effacement Percentage: 20 station: -3 vtx Uterine Contraction Pattern: Irregular - Labs Labs: Abnormal Labs 08/13/20 15:45 MCV 77 L MCH 26 L RDW 15.7 H Laboratory Results - last 24 hr 08/14/20 08:50 Coronavirus (PCR) Negative
--- NOTE | 2020-08-14 22:11 | Progress Note ---
Assessment and Plan Cat 1 FHT's Again discussed options, IOL vs C/S. Patient very concerned about pitocin. Discussed low dose pitocin today without epidural thru the night then reassess in am. Questions encouraged and answered and she agrees with low dose pitocin afer cervidil removed. - Patient Problems (1) 39 weeks gestation of Current Visit: Yes Status: Acute (2) Advanced maternal age, 40 years or greater Onset Date: ~08/13/20 Current Visit: Yes Status: Chronic (3) Anxiety Current Visit: Yes Status: Chronic (4) BMI 45.0-49.9, adult Onset Date: ~08/13/20 Current Visit: Yes Status: Chronic (5) Dizziness Onset Date: ~08/14/20 Current Visit: Yes Status: Acute (6) Rh negative, maternal Onset Date: ~08/13/20 Current Visit: Yes Status: Acute Qualifiers: Trimester: third trimester Qualified Code(s): O26.893 - Other specified related conditions, third trimester; Z67.91 - Unspecified blood type, Rh negative (7) Rubella non-immune status, antepartum Onset Date: ~08/13/20 Current Visit: Yes Status: Acute Subjective - Subjective Date of service: 08/14/20 Principal diagnosis: IUP @ 39w6d IOL for AMA per [facility] Patient reports: movement normal Objective - Vital Signs Vital Signs: Vital Signs - 12hr 08/14/20 08/14/20 08/14/20 10:09 10:14 10:15 Temperature 97.4 F L Pulse Rate 98 H 98 H Respiratory Rate Blood Pressure O2 Sat by Pulse 94 96 Oximetry 08/14/20 08/14/20 08/14/20 10:19 10:24 10:29 Temperature Pulse Rate 99 H 105 H 102 H Respiratory Rate Blood Pressure O2 Sat by Pulse 97 97 96 Oximetry 08/14/20 08/14/20 08/14/20 10:34 10:35 10:39 Temperature Pulse Rate 95 H 104 H 105 H Respiratory Rate Blood Pressure O2 Sat by Pulse 97 93 96 Oximetry 08/14/20 08/14/20 08/14/20 10:44 10:49 10:54 Temperature Pulse Rate 100 H 98 H 105 H Respiratory Rate Blood Pressure O2 Sat by Pulse 97 96 97 Oximetry 08/14/20 08/14/20 08/14/20 10:59 11:04 11:09 Temperature Pulse Rate 103 H 105 H 98 H Respiratory Rate Blood Pressure O2 Sat by Pulse 97 97 97 Oximetry 08/14/20 08/14/20 08/14/20 11:14 11:19 11:24 Temperature Pulse Rate 99 H 99 H 102 H Respiratory Rate Blood Pressure O2 Sat by Pulse 96 97 97 Oximetry 08/14/20 08/14/20 08/14/20 11:29 11:34 11:37 Temperature Pulse Rate 96 H 96 H 94 H Respiratory Rate Blood Pressure O2 Sat by Pulse 95 96 94 Oximetry 08/14/20 08/14/20 08/14/20 11:39 11:44 11:49 Temperature Pulse Rate 99 H 100 H 99 H Respiratory Rate Blood Pressure O2 Sat by Pulse 96 96 96 Oximetry 08/14/20 08/14/20 08/14/20 11:54 11:59 12:01 Temperature Pulse Rate 101 H 96 H 100 H Respiratory Rate Blood Pressure O2 Sat by Pulse 96 97 94 Oximetry 08/14/20 08/14/20 08/14/20 12:04 12:09 12:14 Temperature Pulse Rate 92 H 98 H 92 H Respiratory Rate Blood Pressure O2 Sat by Pulse 96 97 95 Oximetry 08/14/20 08/14/20 08/14/20 12:23 12:28 12:33 Temperature Pulse Rate 93 H 97 H 91 H Respiratory Rate Blood Pressure O2 Sat by Pulse 97 97 95 Oximetry 08/14/20 08/14/20 08/14/20 12:38 12:43 12:48 Temperature Pulse Rate 89 95 H 92 H Respiratory Rate Blood Pressure O2 Sat by Pulse 96 95 96 Oximetry 08/14/20 08/14/20 08/14/20 12:53 12:58 13:03 Temperature Pulse Rate 88 94 H 98 H Respiratory Rate Blood Pressure O2 Sat by Pulse 96 96 96 Oximetry 08/14/20 08/14/20 08/14/20 13:05 13:08 13:13 Temperature Pulse Rate 105 H 92 H 97 H Respiratory Rate Blood Pressure O2 Sat by Pulse 92 97 97 Oximetry 08/14/20 08/14/20 08/14/20 13:18 13:23 13:28 Temperature Pulse Rate 101 H 98 H 88 Respiratory Rate Blood Pressure O2 Sat by Pulse 97 95 97 Oximetry 08/14/20 08/14/20 08/14/20 13:33 13:38 13:43 Temperature Pulse Rate 86 91 H 88 Respiratory Rate Blood Pressure O2 Sat by Pulse 97 98 98 Oximetry 08/14/20 08/14/20 08/14/20 13:48 13:53 13:58 Temperature Pulse Rate 89 88 90 Respiratory Rate Blood Pressure O2 Sat by Pulse 98 98 98 Oximetry 08/14/20 08/14/20 08/14/20 14:00 14:03 14:08 Temperature 98.1 F Pulse Rate 91 H 93 H Respiratory Rate Blood Pressure O2 Sat by Pulse 97 97 Oximetry 08/14/20 08/14/20 08/14/20 14:13 14:18 14:23 Temperature Pulse Rate 100 H 92 H 91 H Respiratory Rate Blood Pressure 119/67 O2 Sat by Pulse 97 98 99 Oximetry 08/14/20 08/14/20 08/14/20 14:28 14:33 14:38 Temperature Pulse Rate 92 H 91 H 93 H Respiratory Rate Blood Pressure O2 Sat by Pulse 98 98 98 Oximetry 08/14/20 08/14/20 08/14/20 14:43 14:48 15:00 Temperature Pulse Rate 92 H 91 H 96 H Respiratory Rate Blood Pressure O2 Sat by Pulse 97 98 97 Oximetry 08/14/20 08/14/20 08/14/20 15:05 15:10 15:15 Temperature Pulse Rate 94 H 95 H 90 Respiratory Rate Blood Pressure O2 Sat by Pulse 96 97 96 Oximetry 08/14/20 08/14/20 08/14/20 15:20 15:25 15:30 Temperature Pulse Rate 97 H 92 H 100 H Respiratory Rate Blood Pressure O2 Sat by Pulse 96 97 96 Oximetry 08/14/20 08/14/20 08/14/20 15:35 15:38 15:40 Temperature Pulse Rate 98 H 95 H 96 H Respiratory Rate Blood Pressure O2 Sat by Pulse 96 94 96 Oximetry 08/14/20 08/14/20 08/14/20 15:45 15:50 15:55 Temperature Pulse Rate 98 H 94 H 98 H Respiratory Rate Blood Pressure O2 Sat by Pulse 97 97 95 Oximetry 08/14/20 08/14/20 08/14/20 16:00 16:03 16:05 Temperature 97.9 F Pulse Rate 97 H 98 H 99 H Respiratory Rate Blood Pressure O2 Sat by Pulse 95 94 95 Oximetry 08/14/20 08/14/20 08/14/20 16:10 16:15 16:17 Temperature Pulse Rate 90 91 H 104 H Respiratory Rate Blood Pressure O2 Sat by Pulse 96 96 92 Oximetry 08/14/20 08/14/20 08/14/20 16:20 16:25 16:30 Temperature Pulse Rate 90 92 H 99 H Respiratory Rate Blood Pressure O2 Sat by Pulse 98 97 96 Oximetry 08/14/20 08/14/20 08/14/20 16:35 16:40 16:45 Temperature Pulse Rate 87 99 H 91 H Respiratory Rate Blood Pressure O2 Sat by Pulse 96 97 98 Oximetry 08/14/20 08/14/20 08/14/20 16:50 16:55 17:00 Temperature Pulse Rate 110 H 104 H 88 Respiratory Rate Blood Pressure O2 Sat by Pulse 97 96 95 Oximetry 08/14/20 08/14/20 08/14/20 17:05 17:10 17:13 Temperature Pulse Rate 98 H 92 H 94 H Respiratory Rate Blood Pressure O2 Sat by Pulse 97 96 94 Oximetry 08/14/20 08/14/20 08/14/20 17:15 17:20 17:25 Temperature Pulse Rate 87 90 90 Respiratory Rate Blood Pressure O2 Sat by Pulse 97 97 97 Oximetry 08/14/20 08/14/20 08/14/20 17:30 17:39 17:44 Temperature Pulse Rate 87 102 H 104 H Respiratory Rate Blood Pressure O2 Sat by Pulse 96 97 94 Oximetry 08/14/20 08/14/20 08/14/20 17:49 17:54 17:59 Temperature Pulse Rate 89 84 92 H Respiratory Rate Blood Pressure O2 Sat by Pulse 98 96 97 Oximetry 08/14/20 08/14/20 08/14/20 18:04 18:09 18:14 Temperature Pulse Rate 90 88 92 H Respiratory Rate Blood Pressure O2 Sat by Pulse 97 97 97 Oximetry 08/14/20 08/14/20 08/14/20 18:19 18:20 18:24 Temperature Pulse Rate 92 H 89 92 H Respiratory Rate Blood Pressure 114/65 O2 Sat by Pulse 97 97 Oximetry 08/14/20 08/14/20 08/14/20 18:29 18:34 18:39 Temperature Pulse Rate 87 91 H 87 Respiratory Rate Blood Pressure O2 Sat by Pulse 97 97 96 Oximetry 08/14/20 08/14/2021 18:44 18:49 18:50 Temperature 97.8 F Pulse Rate 101 H 85 Respiratory Rate Blood Pressure O2 Sat by Pulse 96 97 Oximetry 08/14/20 08/14/20 08/14/20 18:54 18:59 19:04 Temperature Pulse Rate 90 88 93 H Respiratory Rate Blood Pressure O2 Sat by Pulse 97 97 96 Oximetry 08/14/20 08/14/20 08/14/20 19:09 19:14 19:19 Temperature Pulse Rate 86 114 H 94 H Respiratory Rate Blood Pressure 120/58 O2 Sat by Pulse 97 96 98 Oximetry 08/14/20 08/14/20 08/14/20 19:20 19:24 19:29 Temperature 97.9 F Pulse Rate 96 H 86 Respiratory 19 Rate Blood Pressure O2 Sat by Pulse 97 97 Oximetry 08/14/20 08/14/20 08/14/20 19:34 19:39 19:44 Temperature Pulse Rate 92 H 95 H 104 H Respiratory Rate Blood Pressure O2 Sat by Pulse 97 98 98 Oximetry 08/14/20 08/14/20 08/14/20 19:49 19:54 19:59 Temperature Pulse Rate 90 96 H 91 H Respiratory Rate Blood Pressure O2 Sat by Pulse 97 97 96 Oximetry 08/14/20 08/14/20 08/14/20 20:04 20:08 20:09 Temperature Pulse Rate 89 94 H 89 Respiratory Rate Blood Pressure O2 Sat by Pulse 96 94 95 Oximetry 08/14/20 08/14/20 08/14/20 20:14 20:19 20:21 Temperature Pulse Rate 97 H 96 H 89 Respiratory Rate Blood Pressure O2 Sat by Pulse 97 96 94 Oximetry 08/14/20 08/14/20 08/14/20 20:24 20:29 20:34 Temperature Pulse Rate 90 89 97 H Respiratory Rate Blood Pressure O2 Sat by Pulse 98 98 96 Oximetry 08/14/20 08/14/20 08/14/20 20:44 20:47 20:49 Temperature Pulse Rate 98 H 94 H 96 H Respiratory Rate Blood Pressure O2 Sat by Pulse 95 94 96 Oximetry 08/14/20 08/14/20 08/14/20 20:54 20:58 20:59 Temperature Pulse Rate 101 H 90 90 Respiratory Rate Blood Pressure O2 Sat by Pulse 96 94 96 Oximetry 08/14/20 08/14/20 08/14/20 21:04 21:06 21:09 Temperature Pulse Rate 87 86 84 Respiratory Rate Blood Pressure O2 Sat by Pulse 95 94 95 Oximetry 08/14/20 08/14/20 08/14/20 21:14 21:19 21:24 Temperature Pulse Rate 84 85 85 Respiratory Rate Blood Pressure O2 Sat by Pulse 95 94 96 Oximetry 08/14/20 08/14/20 08/14/20 21:25 21:29 21:30 Temperature Pulse Rate 84 86 86 Respiratory Rate Blood Pressure O2 Sat by Pulse 94 95 94 Oximetry 08/14/20 08/14/20 08/14/20 21:34 21:39 21:44 Temperature Pulse Rate 86 89 91 H Respiratory Rate Blood Pressure O2 Sat by Pulse 95 94 96 Oximetry 08/14/20 08/14/20 08/14/20 21:49 21:52 21:54 Temperature Pulse Rate 89 95 H 90 Respiratory Rate Blood Pressure O2 Sat by Pulse 95 94 96 Oximetry 08/14/20 08/14/20 21:59 22:04 Temperature Pulse Rate 89 98 H Respiratory Rate Blood Pressure O2 Sat by Pulse 95 96 Oximetry - Labs Labs: Abnormal Labs 08/13/20 15:45 MCV 77 L MCH 26 L RDW 15.7 H Laboratory Results - last 24 hr 08/14/20 08:50 Coronavirus (PCR) Negative
[2020-08-15] MEDS ORDERED: OXYTOCIN DRIP 30 UNITS/500 ML BAG IV SCH ×2 (01:00→08:00)
[2020-08-15] MEDS: diphenhydrAMINE 25 MG CAP PO PRN (01:36)
[2020-08-15] MEDS: LACTATED RINGERS 1,000 ML IV SCH (06:36)
--- NOTE | 2020-08-15 07:33 | Progress Note ---
Assessment and Plan A: 45 y.o. @ 40 wks, IOL per [facility] d/t AMA. Cervical exam /3. P: Continue with IOL. Increase Pitocin per protocol. Subjective - Subjective Date of service: 08/15/20 (Pt with some reservations about Pitocin.) Principal diagnosis: IUP @ 40 wks IOL for AMA per [facility] Patient reports: movement normal Objective - Vital Signs Vital Signs: Vital Signs - 12hr 08/14/20 08/14/20 08/14/20 19:34 19:39 19:44 Temperature Pulse Rate 92 H 95 H 104 H Respiratory Rate Blood Pressure O2 Sat by Pulse 97 98 98 Oximetry 08/14/20 08/14/20 08/14/20 19:49 19:54 19:59 Temperature Pulse Rate 90 96 H 91 H Respiratory Rate Blood Pressure O2 Sat by Pulse 97 97 96 Oximetry 08/14/20 08/14/20 08/14/20 20:04 20:08 20:09 Temperature Pulse Rate 89 94 H 89 Respiratory Rate Blood Pressure O2 Sat by Pulse 96 94 95 Oximetry 08/14/20 08/14/20 08/14/20 20:14 20:19 20:21 Temperature Pulse Rate 97 H 96 H 89 Respiratory Rate Blood Pressure O2 Sat by Pulse 97 96 94 Oximetry 08/14/20 08/14/20 08/14/20 20:24 20:29 20:34 Temperature Pulse Rate 90 89 97 H Respiratory Rate Blood Pressure O2 Sat by Pulse 98 98 96 Oximetry 08/14/20 08/14/20 08/14/20 20:44 20:47 20:49 Temperature Pulse Rate 98 H 94 H 96 H Respiratory Rate Blood Pressure O2 Sat by Pulse 95 94 96 Oximetry 08/14/20 08/14/20 08/14/20 20:54 20:58 20:59 Temperature Pulse Rate 101 H 90 90 Respiratory Rate Blood Pressure O2 Sat by Pulse 96 94 96 Oximetry 08/14/20 08/14/20 08/14/20 21:04 21:06 21:09 Temperature Pulse Rate 87 86 84 Respiratory Rate Blood Pressure O2 Sat by Pulse 95 94 95 Oximetry 08/14/20 08/14/20 08/14/20 21:14 21:19 21:24 Temperature Pulse Rate 84 85 85 Respiratory Rate Blood Pressure O2 Sat by Pulse 95 94 96 Oximetry 08/14/20 08/14/20 08/14/20 21:25 21:29 21:30 Temperature Pulse Rate 84 86 86 Respiratory Rate Blood Pressure O2 Sat by Pulse 94 95 94 Oximetry 08/14/20 08/14/20 08/14/20 21:34 21:39 21:44 Temperature Pulse Rate 86 89 91 H Respiratory Rate Blood Pressure O2 Sat by Pulse 95 94 96 Oximetry 08/14/20 08/14/20 08/14/20 21:49 21:52 21:54 Temperature Pulse Rate 89 95 H 90 Respiratory Rate Blood Pressure O2 Sat by Pulse 95 94 96 Oximetry 08/14/20 08/14/20 08/14/20 21:59 22:04 22:18 Temperature Pulse Rate 89 98 H 89 Respiratory Rate Blood Pressure O2 Sat by Pulse 95 96 97 Oximetry 08/14/20 08/14/20 08/14/20 22:22 22:23 22:28 Temperature Pulse Rate 90 88 97 H Respiratory Rate Blood Pressure O2 Sat by Pulse 93 95 96 Oximetry 08/14/20 08/14/20 08/14/20 22:29 22:33 22:34 Temperature Pulse Rate 92 H 87 93 H Respiratory Rate Blood Pressure O2 Sat by Pulse 93 96 94 Oximetry 08/14/20 08/14/20 08/14/20 22:38 22:39 22:43 Temperature Pulse Rate 90 85 84 Respiratory Rate Blood Pressure O2 Sat by Pulse 96 94 93 Oximetry 08/14/20 08/14/20 08/14/20 22:46 22:48 22:53 Temperature Pulse Rate 84 87 90 Respiratory Rate Blood Pressure O2 Sat by Pulse 93 93 93 Oximetry 08/14/20 08/14/20 08/14/20 22:58 23:08 23:13 Temperature Pulse Rate 93 H 106 H 94 H Respiratory Rate Blood Pressure O2 Sat by Pulse 96 95 96 Oximetry 08/14/20 08/14/20 08/14/20 23:18 23:42 23:46 Temperature Pulse Rate 83 96 H 88 Respiratory Rate Blood Pressure O2 Sat by Pulse 97 96 94 Oximetry 08/14/20 08/14/20 08/14/20 23:47 23:52 23:57 Temperature Pulse Rate 89 92 H 84 Respiratory Rate Blood Pressure O2 Sat by Pulse 95 96 96 Oximetry 08/15/20 08/15/20 08/15/20 00:02 00:07 00:08 Temperature Pulse Rate 83 88 93 H Respiratory Rate Blood Pressure O2 Sat by Pulse 95 95 94 Oximetry 08/15/20 08/15/20 08/15/20 00:12 00:17 00:22 Temperature Pulse Rate 76 79 83 Respiratory Rate Blood Pressure O2 Sat by Pulse 95 96 95 Oximetry 08/15/20 08/15/20 08/15/20 00:27 00:32 00:37 Temperature Pulse Rate 92 H 95 H 82 Respiratory Rate Blood Pressure O2 Sat by Pulse 96 97 95 Oximetry 08/15/20 08/15/20 08/15/20 00:39 00:42 00:47 Temperature Pulse Rate 77 72 74 Respiratory Rate Blood Pressure O2 Sat by Pulse 94 95 95 Oximetry 08/15/20 08/15/20 08/15/20 00:52 00:54 00:57 Temperature Pulse Rate 77 79 76 Respiratory Rate Blood Pressure O2 Sat by Pulse 95 94 95 Oximetry 08/15/20 08/15/20 08/15/20 00:59 01:02 01:04 Temperature Pulse Rate 75 93 H 84 Respiratory Rate Blood Pressure O2 Sat by Pulse 94 96 94 Oximetry 08/15/20 08/15/20 08/15/20 01:07 01:12 01:17 Temperature Pulse Rate 104 H 77 81 Respiratory Rate Blood Pressure O2 Sat by Pulse 95 96 96 Oximetry 08/15/20 08/15/20 08/15/20 01:19 01:22 01:27 Temperature Pulse Rate 73 98 H 78 Respiratory Rate Blood Pressure O2 Sat by Pulse 92 97 96 Oximetry 08/15/20 08/15/20 08/15/20 01:32 01:37 01:40 Temperature Pulse Rate 92 H 83 90 Respiratory Rate Blood Pressure 109/57 O2 Sat by Pulse 99 97 Oximetry 08/15/20 08/15/20 08/15/20 01:42 01:47 01:52 Temperature Pulse Rate 87 97 H 85 Respiratory Rate Blood Pressure O2 Sat by Pulse 98 97 96 Oximetry 08/15/20 08/15/20 08/15/20 01:57 02:02 02:07 Temperature Pulse Rate 85 91 H 82 Respiratory Rate Blood Pressure O2 Sat by Pulse 97 96 96 Oximetry 08/15/20 08/15/20 08/15/20 02:12 02:17 02:22 Temperature Pulse Rate 83 87 89 Respiratory Rate Blood Pressure O2 Sat by Pulse 97 97 97 Oximetry 08/15/20 08/15/20 08/15/20 02:27 02:30 02:32 Temperature 98.9 F Pulse Rate 82 80 Respiratory 17 Rate Blood Pressure O2 Sat by Pulse 96 96 Oximetry 08/15/20 08/15/20 08/15/20 02:41 02:44 02:46 Temperature Pulse Rate 92 H 78 80 Respiratory Rate Blood Pressure O2 Sat by Pulse 96 94 94 Oximetry 08/15/20 08/15/20 08/15/20 02:51 02:56 02:57 Temperature Pulse Rate 74 71 74 Respiratory Rate Blood Pressure O2 Sat by Pulse 94 94 94 Oximetry 08/15/20 08/15/20 08/15/20 03:01 03:03 03:06 Temperature Pulse Rate 66 73 74 Respiratory Rate Blood Pressure O2 Sat by Pulse 95 94 95 Oximetry 08/15/20 08/15/20 08/15/20 03:08 03:11 03:14 Temperature Pulse Rate 67 70 77 Respiratory Rate Blood Pressure O2 Sat by Pulse 94 95 94 Oximetry 08/15/20 08/15/20 08/15/20 03:16 03:21 03:26 Temperature Pulse Rate 86 72 72 Respiratory Rate Blood Pressure O2 Sat by Pulse 95 96 96 Oximetry 08/15/20 08/15/20 08/15/20 03:31 03:36 03:41 Temperature Pulse Rate 74 78 81 Respiratory Rate Blood Pressure O2 Sat by Pulse 96 96 96 Oximetry 08/15/20 08/15/20 08/15/20 03:46 03:51 03:56 Temperature Pulse Rate 76 79 72 Respiratory Rate Blood Pressure O2 Sat by Pulse 96 95 95 Oximetry 08/15/20 08/15/20 08/15/20 04:01 04:06 04:11 Temperature Pulse Rate 73 71 71 Respiratory Rate Blood Pressure O2 Sat by Pulse 95 95 94 Oximetry 08/15/20 08/15/20 08/15/20 04:16 04:21 04:26 Temperature Pulse Rate 73 81 69 Respiratory Rate Blood Pressure O2 Sat by Pulse 92 96 94 Oximetry 08/15/20 08/15/20 08/15/20 04:31 04:36 04:46 Temperature Pulse Rate 81 76 101 H Respiratory Rate Blood Pressure O2 Sat by Pulse 97 96 99 Oximetry 08/15/20 08/15/20 08/15/20 04:51 04:56 05:01 Temperature Pulse Rate 84 88 78 Respiratory Rate Blood Pressure O2 Sat by Pulse 98 97 98 Oximetry 08/15/20 08/15/20 08/15/20 05:06 05:11 05:16 Temperature Pulse Rate 84 84 90 Respiratory Rate Blood Pressure O2 Sat by Pulse 98 97 97 Oximetry 08/15/20 08/15/20 08/15/20 05:21 05:26 05:31 Temperature Pulse Rate 80 84 81 Respiratory Rate Blood Pressure O2 Sat by Pulse 99 99 99 Oximetry 08/15/20 08/15/20 08/15/20 05:36 05:41 05:46 Temperature Pulse Rate 86 79 81 Respiratory Rate Blood Pressure O2 Sat by Pulse 99 98 98 Oximetry 08/15/20 08/15/20 08/15/20 05:51 05:56 06:01 Temperature Pulse Rate 84 90 87 Respiratory Rate Blood Pressure O2 Sat by Pulse 96 97 98 Oximetry 08/15/20 08/15/20 08/15/20 06:06 06:11 06:18 Temperature Pulse Rate 79 83 92 H Respiratory Rate Blood Pressure O2 Sat by Pulse 99 97 98 Oximetry 08/15/20 08/15/20 08/15/20 06:23 06:28 06:33 Temperature Pulse Rate 84 90 78 Respiratory Rate Blood Pressure O2 Sat by Pulse 98 98 97 Oximetry 08/15/20 08/15/20 08/15/20 06:38 06:43 06:48 Temperature Pulse Rate 87 81 98 H Respiratory Rate Blood Pressure O2 Sat by Pulse 99 98 96 Oximetry 08/15/20 08/15/20 08/15/20 06:53 06:58 07:03 Temperature Pulse Rate 92 H 81 89 Respiratory Rate Blood Pressure O2 Sat by Pulse 97 96 98 Oximetry 08/15/20 08/15/20 08/15/20 07:08 07:14 07:19 Temperature Pulse Rate 88 105 H 88 Respiratory Rate Blood Pressure O2 Sat by Pulse 97 90 98 Oximetry 08/15/20 08/15/20 07:24 07:29 Temperature Pulse Rate 86 73 Respiratory Rate Blood Pressure O2 Sat by Pulse 97 96 Oximetry - Exam Narrative Exam: Pt has some reservations about Pitocin, but is happy that she is having some contractions at this time. We discussed her cervical exam this AM, /-3, which is a change from previous exam. We discussed options such as Cytotec, increasing Pitocin, or using a [employer]s Catheter. Pt does not want Cytotec, but would like Pitocin to continue at this time. Breasts: deferred Cardiovascular: Regular rate Lungs: Normal air movement Abdomen: Present: normal appearance, soft Vulva: both: normal Uterus: Present: normal FHR: category 1 Uterine Contraction Monitor Mode: External Cervical Dilatation: 1 Cervical Effacement Percentage: 50 station: -3 Uterine Contraction Pattern: Regular Uterine Tone Measurement Phase: Resting Uterine Contraction Intensity: Mild - Labs Labs: Abnormal Labs 08/13/20 15:45 MCV 77 L MCH 26 L RDW 15.7 H Laboratory Results - last 24 hr 08/14/20 08:50 Coronavirus (PCR) Negative
[2020-08-15] MEDS: FAMOTIDINE 20 MG/2 ML INJ IV SCH (10:42)
[2020-08-15] MEDS ORDERED: BICITRA ORAL LIQD 30ML PO NR (12:51)
[2020-08-15] MEDS ORDERED: FAMOTIDINE 20 MG/2 ML INJ IV NR (12:51)
[2020-08-15] MEDS ORDERED: METOCLOPRAMIDE 10 MG/2 ML INJ IV NR (12:51)
--- NOTE | 2020-08-15 12:51 | Progress Note ---
Assessment and Plan A: 45 y.o. @ 40 wks, IOL. Cervical exam 1.5/50/-3. P: IOL discontinued. consents placed on the chart. Subjective - Subjective Date of service: 08/15/20 (Pt does not wish to continue with IOL) Principal diagnosis: IUP @ 40 wks IOL for AMA per [facility] Patient reports: movement normal Objective - Vital Signs Vital Signs: Vital Signs - 12hr 08/15/20 08/15/20 08/15/20 00:52 00:54 00:57 Temperature Pulse Rate 77 79 76 Respiratory Rate Blood Pressure O2 Sat by Pulse 95 94 95 Oximetry 08/15/20 08/15/20 08/15/20 00:59 01:02 01:04 Temperature Pulse Rate 75 93 H 84 Respiratory Rate Blood Pressure O2 Sat by Pulse 94 96 94 Oximetry 08/15/20 08/15/20 08/15/20 01:07 01:12 01:17 Temperature Pulse Rate 104 H 77 81 Respiratory Rate Blood Pressure O2 Sat by Pulse 95 96 96 Oximetry 08/15/20 08/15/20 08/15/20 01:19 01:22 01:27 Temperature Pulse Rate 73 98 H 78 Respiratory Rate Blood Pressure O2 Sat by Pulse 92 97 96 Oximetry 08/15/20 08/15/20 08/15/20 01:32 01:37 01:40 Temperature Pulse Rate 92 H 83 90 Respiratory Rate Blood Pressure 109/57 O2 Sat by Pulse 99 97 Oximetry 08/15/20 08/15/20 08/15/20 01:42 01:47 01:52 Temperature Pulse Rate 87 97 H 85 Respiratory Rate Blood Pressure O2 Sat by Pulse 98 97 96 Oximetry 08/15/20 08/15/20 08/15/20 01:57 02:02 02:07 Temperature Pulse Rate 85 91 H 82 Respiratory Rate Blood Pressure O2 Sat by Pulse 97 96 96 Oximetry 08/15/20 08/15/20 08/15/20 02:12 02:17 02:22 Temperature Pulse Rate 83 87 89 Respiratory Rate Blood Pressure O2 Sat by Pulse 97 97 97 Oximetry 08/15/20 08/15/20 08/15/20 02:27 02:30 02:32 Temperature 98.9 F Pulse Rate 82 80 Respiratory 17 Rate Blood Pressure O2 Sat by Pulse 96 96 Oximetry 08/15/20 08/15/2008/15/21 02:41 02:44 02:46 Temperature Pulse Rate 92 H 78 80 Respiratory Rate Blood Pressure O2 Sat by Pulse 96 94 94 Oximetry 08/15/20 08/15/20 08/15/20 02:51 02:56 02:57 Temperature Pulse Rate 74 71 74 Respiratory Rate Blood Pressure O2 Sat by Pulse 94 94 94 Oximetry 08/15/20 08/15/20 08/15/20 03:01 03:03 03:06 Temperature Pulse Rate 66 73 74 Respiratory Rate Blood Pressure O2 Sat by Pulse 95 94 95 Oximetry 08/15/20 08/15/20 08/15/20 03:08 03:11 03:14 Temperature Pulse Rate 67 70 77 Respiratory Rate Blood Pressure O2 Sat by Pulse 94 95 94 Oximetry 08/15/20 08/15/20 08/15/20 03:16 03:21 03:26 Temperature Pulse Rate 86 72 72 Respiratory Rate Blood Pressure O2 Sat by Pulse 95 96 96 Oximetry 08/15/20 08/15/20 08/15/20 03:31 03:36 03:41 Temperature Pulse Rate 74 78 81 Respiratory Rate Blood Pressure O2 Sat by Pulse 96 96 96 Oximetry 08/15/20 08/15/20 08/15/20 03:46 03:51 03:56 Temperature Pulse Rate 76 79 72 Respiratory Rate Blood Pressure O2 Sat by Pulse 96 95 95 Oximetry 08/15/20 08/15/20 08/15/20 04:01 04:06 04:11 Temperature Pulse Rate 73 71 71 Respiratory Rate Blood Pressure O2 Sat by Pulse 95 95 94 Oximetry 08/15/20 08/15/20 08/15/20 04:16 04:21 04:26 Temperature Pulse Rate 73 81 69 Respiratory Rate Blood Pressure O2 Sat by Pulse 92 96 94 Oximetry 08/15/20 08/15/20 08/15/20 04:31 04:36 04:46 Temperature Pulse Rate 81 76 101 H Respiratory Rate Blood Pressure O2 Sat by Pulse 97 96 99 Oximetry 08/15/20 08/15/20 08/15/20 04:51 04:56 05:01 Temperature Pulse Rate 84 88 78 Respiratory Rate Blood Pressure O2 Sat by Pulse 98 97 98 Oximetry 08/15/20 08/15/20 08/15/20 05:06 05:11 05:16 Temperature Pulse Rate 84 84 90 Respiratory Rate Blood Pressure O2 Sat by Pulse 98 97 97 Oximetry 08/15/20 08/15/20 08/15/20 05:21 05:26 05:31 Temperature Pulse Rate 80 84 81 Respiratory Rate Blood Pressure O2 Sat by Pulse 99 99 99 Oximetry 08/15/20 08/15/20 08/15/20 05:36 05:41 05:46 Temperature Pulse Rate 86 79 81 Respiratory Rate Blood Pressure O2 Sat by Pulse 99 98 98 Oximetry 08/15/20 08/15/20 08/15/20 05:51 05:56 06:01 Temperature Pulse Rate 84 90 87 Respiratory Rate Blood Pressure O2 Sat by Pulse 96 97 98 Oximetry 08/15/20 08/15/20 08/15/20 06:06 06:11 06:18 Temperature Pulse Rate 79 83 92 H Respiratory Rate Blood Pressure O2 Sat by Pulse 99 97 98 Oximetry 08/15/20 08/15/20 08/15/20 06:23 06:28 06:33 Temperature Pulse Rate 84 90 78 Respiratory Rate Blood Pressure O2 Sat by Pulse 98 98 97 Oximetry 08/15/20 08/15/20 08/15/20 06:38 06:43 06:48 Temperature Pulse Rate 87 81 98 H Respiratory Rate Blood Pressure O2 Sat by Pulse 99 98 96 Oximetry 08/15/20 08/15/20 08/15/20 06:53 06:58 07:03 Temperature Pulse Rate 92 H 81 89 Respiratory Rate Blood Pressure O2 Sat by Pulse 97 96 98 Oximetry 08/15/20 08/15/20 08/15/20 07:08 07:14 07:19 Temperature Pulse Rate 88 105 H 88 Respiratory Rate Blood Pressure O2 Sat by Pulse 97 90 98 Oximetry 08/15/20 08/15/20 08/15/20 07:24 07:29 07:34 Temperature Pulse Rate 86 73 79 Respiratory Rate Blood Pressure O2 Sat by Pulse 97 96 97 Oximetry 08/15/20 08/15/20 08/15/20 07:39 07:44 07:48 Temperature Pulse Rate 86 83 83 Respiratory Rate Blood Pressure 106/54 O2 Sat by Pulse 98 97 Oximetry 08/15/20 08/15/20 08/15/20 07:49 07:54 07:59 Temperature Pulse Rate 85 84 93 H Respiratory Rate Blood Pressure O2 Sat by Pulse 96 96 97 Oximetry 08/15/20 08/15/20 08/15/20 08:04 08:09 08:14 Temperature Pulse Rate 83 78 82 Respiratory Rate Blood Pressure O2 Sat by Pulse 97 96 95 Oximetry 08/15/20 08/15/20 08/15/20 08:19 08:24 08:29 Temperature Pulse Rate 88 82 85 Respiratory Rate Blood Pressure 105/57 O2 Sat by Pulse 97 96 97 Oximetry 08/15/20 08/15/20 08/15/20 08:34 08:39 08:44 Temperature Pulse Rate 86 82 83 Respiratory Rate Blood Pressure O2 Sat by Pulse 97 96 96 Oximetry 08/15/20 08/15/20 08/15/20 08:49 08:50 08:54 Temperature Pulse Rate 80 78 90 Respiratory Rate Blood Pressure 101/59 O2 Sat by Pulse 96 96 Oximetry 08/15/20 08/15/20 08/15/20 08:59 09:04 09:09 Temperature Pulse Rate 81 80 80 Respiratory Rate Blood Pressure O2 Sat by Pulse 97 95 97 Oximetry 08/15/20 08/15/20 08/15/20 09:14 09:19 09:26 Temperature Pulse Rate 76 82 84 Respiratory Rate Blood Pressure 121/56 O2 Sat by Pulse 96 98 96 Oximetry 08/15/20 08/15/20 08/15/20 09:31 09:36 09:41 Temperature Pulse Rate 81 81 82 Respiratory Rate Blood Pressure O2 Sat by Pulse 96 96 95 Oximetry 08/15/20 08/15/20 08/15/20 09:46 09:50 09:51 Temperature Pulse Rate 84 79 76 Respiratory Rate Blood Pressure 136/61 O2 Sat by Pulse 95 96 Oximetry 08/15/20 08/15/20 08/15/20 09:56 10:01 10:06 Temperature Pulse Rate 81 79 80 Respiratory Rate Blood Pressure O2 Sat by Pulse 96 94 94 Oximetry 08/15/20 08/15/20 08/15/20 10:11 10:16 10:19 Temperature Pulse Rate 84 85 80 Respiratory Rate Blood Pressure 129/60 O2 Sat by Pulse 95 95 Oximetry 08/15/20 08/15/20 08/15/20 10:21 10:26 10:31 Temperature Pulse Rate 76 82 83 Respiratory Rate Blood Pressure O2 Sat by Pulse 96 95 95 Oximetry 08/15/20 08/15/20 08/15/20 10:36 10:41 10:46 Temperature Pulse Rate 91 H 82 83 Respiratory Rate Blood Pressure O2 Sat by Pulse 97 96 97 Oximetry 08/15/20 08/15/20 08/15/20 10:49 10:51 10:56 Temperature Pulse Rate 80 79 96 H Respiratory Rate Blood Pressure 107/68 O2 Sat by Pulse 97 96 Oximetry 08/15/20 08/15/20 08/15/20 11:01 11:06 11:11 Temperature Pulse Rate 82 82 89 Respiratory Rate Blood Pressure O2 Sat by Pulse 96 97 97 Oximetry 08/15/20 08/15/20 08/15/20 11:16 11:20 11:27 Temperature Pulse Rate 84 81 85 Respiratory Rate Blood Pressure 117/59 O2 Sat by Pulse 95 98 Oximetry 08/15/20 08/15/20 08/15/20 11:32 11:37 11:42 Temperature Pulse Rate 74 81 76 Respiratory Rate Blood Pressure O2 Sat by Pulse 97 95 97 Oximetry 08/15/20 08/15/20 08/15/20 11:47 11:49 11:52 Temperature Pulse Rate 84 75 78 Respiratory Rate Blood Pressure 115/56 O2 Sat by Pulse 97 97 Oximetry 08/15/20 08/15/20 08/15/20 11:57 12:02 12:07 Temperature Pulse Rate 78 81 84 Respiratory Rate Blood Pressure O2 Sat by Pulse 97 97 96 Oximetry 08/15/20 08/15/20 08/15/20 12:12 12:17 12:19 Temperature Pulse Rate 85 106 H 98 H Respiratory Rate Blood Pressure 140/80 O2 Sat by Pulse 96 97 Oximetry 08/15/20 08/15/20 08/15/20 12:22 12:27 12:28 Temperature Pulse Rate 84 83 82 Respiratory Rate Blood Pressure 116/58 O2 Sat by Pulse 98 98 Oximetry 08/15/20 08/15/20 08/15/20 12:32 12:37 12:42 Temperature Pulse Rate 82 95 H 90 Respiratory Rate Blood Pressure O2 Sat by Pulse 98 96 97 Oximetry 08/15/20 12:47 Temperature Pulse Rate 91 H Respiratory Rate Blood Pressure O2 Sat by Pulse 97 Oximetry - Exam Narrative Exam: Spoke with patient regarding progress with IOL. Her cervical exam is 1.5/50/-3. We discussed methods that we can use for continued IOL to include Cook's catheter and Cytotec. Pt declines those methods and she does not want to continue Pitocin. We discussed the only other option is a . Pt states that she would like to proceed with a primary at this time. Consents signed and on chart. Dr. Raines made aware of patient's decision. Breasts: deferred Cardiovascular: Regular rate Lungs: Normal air movement Abdomen: Present: normal appearance, soft Vulva: both: normal FHR: category 1 Uterine Contraction Monitor Mode: External Cervical Dilatation: 1.5 Cervical Effacement Percentage: 50 station: -3 Uterine Contraction Pattern: Regular Uterine Tone Measurement Phase: Resting Uterine Contraction Intensity: Moderate - Labs Labs: Abnormal Labs 08/13/20 15:45 MCV 77 L MCH 26 L RDW 15.7 H Laboratory Results - last 24 hr 08/14/20 08:50 Coronavirus (PCR) Negative
[2020-08-15] MEDS ORDERED: ceFAZolin/Water 2 GM/20 ML 2 GM/20 ML SYRINGE IV NR (13:00)
--- NOTE | 2020-08-15 15:07 | Anesthesia Day of Surgery ---
Anesthesia Day of Surgery - Day of Surgery Patient Examined: Yes Patient H&P Reviewed: Yes Patient is NPO: Yes Beta Blockers: No Cardiac Clearance: No Pulmonary Clearance: No Adelso's Test: N/A
[2020-08-15] MEDS ORDERED: HYDROmorphone 1 MG/1 ML INJ IV PRN (15:08)
[2020-08-15] MEDS ORDERED: NALOXONE 0.4 MG/1 ML INJ IV PRN ×2 (15:08→17:25)
[2020-08-15] MEDS ORDERED: ONDANSETRON 4 MG/2 ML INJ IV PRN (15:08)
--- NOTE | 2020-08-15 15:08 | Anesthesia Consultation ---
Anesthesia Consult and Med Hx Date of service: 08/15/20 - Airway Anesthetic Teeth Evaluation: Poor ROM Head & Neck: Adequate Mental/Hyoid Distance: Adequate Mallampati Class: Class III Intubation Access Assessment: Possibly Difficult - Pulmonary Exam CTA: Yes - Cardiac Exam Cardiac Exam: RRR - Pre-Operative Health Status ASA Pre-Surgery Classification: ASA3 Proposed Anesthetic Plan: Spinal - Pre-Anesthesia Comment Pre-Anesthesia Comments: 2007 cholecystectomy - Pulmonary Hx Smoking: No Hx Asthma: No Hx Respiratory Symptoms: No SOB: No COPD: No Home Oxygen Therapy: No - Cardiovascular System Hx Hypertension: No - Central Nervous System Hx Seizures: No Hx Psychiatric Problems: No - Endocrine Hx Renal Disease: No Hx Hypothyroidism: No Hx Hyperthyroidism: No - Hematic Hx Anemia: No Hx Sickle Cell Disease: No - Other Systems Hx Alcohol Use: No
[2020-08-15] MEDS ORDERED: WATER FOR IRRIG STERILE 1,500 ML BOTTLE IR ONE (15:50)
[2020-08-15] MEDS ORDERED: SODIUM CHLORIDE 0.9% IRR 1,500 ML BOTTLE IR ONE (15:50)
[2020-08-15] MEDS ORDERED: ceFAZolin/STERILE WATER 2 GM/20 ML SYRINGE IV ONE (15:50)
[2020-08-15] MEDS ORDERED: PHENYLEPHRINE/NS 1,000 MCG/10 ML SYRINGE (OR USE) IV ONE (16:18)
[2020-08-15] MEDS ORDERED: ONDANSETRON 4 MG/2 ML INJ ONE ×2 (16:19)
[2020-08-15] MEDS ORDERED: KETOROLAC 30 MG/1 ML INJ ONE (16:30)
[2020-08-15] MEDS ORDERED: PHENYLEPHRINE 10 MG/1 ML INJ SDV ONE (16:41)
[2020-08-15] MEDS ORDERED: SODIUM CHLORIDE 0.9% 100 ML ONE ×2 (16:42)
[2020-08-15] MEDS ORDERED: dexAMETHasone 20 MG/5 ML VIAL ONE (16:43)
[2020-08-15] MEDS ORDERED: BUPIVACAINE/PF (0.5%) 5 MG/1 ML 30 ML VIAL INFILTRATI ONE (16:45)
[2020-08-15] MEDS ORDERED: LANOLIN/ZINC/DIMETHICONE (LANSINOH) 7 GM TP PRN (17:25)
[2020-08-15] MEDS ORDERED: WITCH HAZEL/ GLYCERIN PAD TP PRN (17:25)
[2020-08-15] MEDS ORDERED: HYDROcodone/ACETAMINOPHEN 5-325 MG TAB PO PRN (17:27)
--- NOTE | 2020-08-15 17:37 | Operative Report ---
Operative Report Operative Report: Date of procedure: 08/15/2020 Pre-operative diagnosis: Advanced maternal age Morbid obesity Failed induction of labor Desires permanent sterilization Post-operative diagnosis: Same Procedure name(s): Primary low transverse section via Pfannenstiel skin incision Bilateral salpingectomy Surgeon: Dr. Raines Agency Sales Representative: Kalyani Antonio CNM Anesthesia: Spinal EBL: [] Urine output: 200 mL of clear urine out at end of procedure Fluids: 1100 mL Findings: Liveborn female infant weight 6 pounds 14 ounces Apgars of 9 and 9 at 1 and 5 minutes Nuchal cord x1 Grossly normal fallopian tubes and ovaries bilaterally Indications: Patient presented for induction of labor due to advanced maternal age. Patient undergone attempted induction for the last 2 days. Patient no longer desired induction of labor and requested section at this time. All risk benefits and alternatives were discussed with the patient. Consents were signed and placed on the chart. Procedure: Patient was taking to the operating room. Patient was then prepped and draped in sterile fashion after anesthesia was found to be adequate. A low transverse skin incision was made with the scalpel and carried down to the underlying layer of fascia with the Bovie. The fascia was then incised in the midline and this incision was extended bilaterally with the Bovie. The superior aspect of the fascia was grasped with Reid clamps tented upward and dissected off of the anterior rectus muscles with the scalpel. In similar fashion the inferior aspect of the fascia was grasped with Reid clamps tented upward and dissected off of the anterior rectus muscles. The rectus muscles were then bluntly divided in the midline. The peritoneum was identified and entered into sharply. The Simeon retractor was placed. A lower transverse uterine incision was made with the scalpel and extended bilaterally with the bandage scThe bladder blade was placed. Thissors. Artificial rupture of membranes was performed yielding [clear amniotic fluid]. The infant's head was then delivered atraumatically. Nuchal cord was easily reduced. The anterior shoulder and rest of infant delivered without difficulty. The umbilical cord was clamped x2. The cord was cut. The infant was then placed in sterile bassinet. [The cord blood was collected.] The placenta was manually extracted in its entirety. The uterus was exteriorized and cleared of all clots and debris. The uterine incision was closed using 0 Vicryl in a running locking fashion. A second imbricating layer of the same suture was then created. The posterior cul-de-sac was copiously irrigated. Attention was then turned to the right fallopian tube. Fallopian tube was grasped with the Phyllis. Cauterized and transected. Entire fallopian tube was removed and handed off for pathology. This was repeated on the left side. The uterus was returned to the abdomen. The gutters were also irrigated. He mobilized was placed along the uterine incision with excellent hemostasis noted. The anterior rectus muscles were reapproximated using 3-0 V icryl. The anterior rectus fascia was reapproximated using 0 Vicryl in a running fashion. The subcuticular fat was reapproximated using 2-0 Vicryl in a running fashion. The skin was reapproximated with 4-0 Monocryl in a subcuticular stitch. The patient tolerated the procedure well. Sponge lap and needle counts were all correct x3. Patient was taken to the recovery room awake and in stable condition.
[2020-08-15] MEDS ORDERED: D5W/LACTATED RINGERS 1,000 ML IV SCH (18:00)
--- NOTE | 2020-08-15 20:37 | Progress Note ---
Spinal Anesthesia Block - Spinal Anesthesia Block Start Time: 15:57 Stop Time: 16:04 Performed by:: RYLEY WINN Procedure: Patient IDed, H&P reviewed, all questions and concerns were answered, and consent was signed. Timeout was performed at bedside. Patient in sitting position. Sterile prep and drape was performed. [3] ml of 1% lidocaine skin wheal at L[3]- L [4]. Needle introducer advanced. 25 gauge spinal needle advanced. Clear, free flowing CSF. negative blood, negative paresthesia. Spinal dose given. All needles removed. Patient tolerated procedure.
--- NOTE | 2020-08-15 20:42 | Progress Note ---
Labor Epidural - Labor Epidural Start Time: 18:10 Stop Time: 18:18 Performed by:: JOCELYN GARRISON Procedure: Patient consented for TAP block for post surgical pain management. Patient identified, monitors placed, and time out performed. TAP identified bilaterally via ultrasound. Skin prepped bilaterally with [chlorhexidine] and [22g stimuplex] needle advanced to the TAP. [Marcaine 0.22% 35ml] injected under ultrasound guidance on the [left] side. [Marcaine 0.22% 35ml] injected under ultrasound guidance on the [right] side. Negative aspiration every 5mL, No change in heart rate or rhythm. Patient tolerated the procedure well. No apparent complications seen.
[2020-08-15] MEDS: ceFAZolin/NS 1 GM/50 ML 1 GM/50 ML BAG IV SCH (22:10)
[2020-08-16] MEDS: KETOROLAC 30 MG/1 ML INJ IV PRN ×2 (05:27→11:44)
[2020-08-16 05:28] LABS: Hematocrit 28.7 % (30.3-42.9); Hemoglobin 9.6 gm/dl (10.1-14.3)
[2020-08-16] MEDS: ceFAZolin/NS 1 GM/50 ML 1 GM/50 ML BAG IV SCH (05:36)
[2020-08-16] MEDS ORDERED: TETANUS,DIPH,PERTUSS(ACELL) VACCINE 0.5 ML SYRINGE IM ONE (06:00)
--- NOTE | 2020-08-16 08:14 | Progress Note ---
Assessment and Plan pt ambulating for AM care, no flatus as of yet. VSSAF, postop H&H 9.6/28.7, incision dry & dressed - pt to take shower today and RN to remove dressing. - Patient Problems (1) delivery delivered Current Visit: Yes Status: Acute Plan to address problem: continue postop pathway (2) Rh negative, maternal Onset Date: ~08/13/20 Current Visit: Yes Status: Acute Qualifiers: Trimester: third trimester Qualified Code(s): O26.893 - Other specified related conditions, third trimester; Z67.91 - Unspecified blood type, Rh negative Plan to address problem: rhogam work up (3) Rubella non-immune status, antepartum Onset Date: ~08/13/20 Current Visit: Yes Status: Acute Plan to address problem: MMR prior to discharge (4) Anxiety Current Visit: Yes Status: Chronic (5) BMI 45.0-49.9, adult Onset Date: ~08/13/20 Current Visit: Yes Status: Chronic Subjective - Subjective Date of service: 08/16/20 Principal diagnosis: c/s postop day #1 Patient reports: appetite normal, voiding normally, pain well controlled, ambulating normally, no dizzy ambulation, no flatus, no nauseated : doing well, bottle feeding (breast and bottle feeding) Objective - Vital Signs Latest vital signs: Vital Signs Temp Pulse Resp BP BP Pulse Ox 08/16/20 05:07 98.4 F 77 18 106/50 97 08/16/20 01:15 97.6 F 76 20 102/55 94 08/15/20 19:45 98.3 F 62 18 99/48 08/15/20 18:15 74 15 85/32 08/15/20 18:00 77 15 101/44 08/15/20 17:45 72 18 105/54 08/15/20 17:40 82 16 93/51 08/15/20 17:35 90 16 94/40 08/15/20 17:30 79 16 78/45 08/15/20 17:25 84 23 84/37 08/15/20 17:20 97.9 F 82 16 91/36 08/15/20 13:19 93 H 102/59 08/15/20 13:17 109 H 97 08/15/20 13:12 89 97 08/15/20 13:07 92 H 96 06 13:02 83 97 08/15/20 12:57 79 97 06 12:52 97 H 96 08/15/20 12:49 82 110/56 08/15/20 12:47 91 H 97 08/15/20 12:42 90 97 08/15/20 12:37 95 H 96 08/15/20 12:32 82 98 08/15/20 12:28 82 116/58 08/15/20 12:27 83 98 06 12:22 84 98 08/15/20 12:19 98 H 140/80 08/15/20 12:17 106 H 97 08/15/20 12:12 85 96 08/15/20 12:07 84 96 08/15/20 12:02 81 97 08/15/20 11:57 78 97 08/15/20 11:52 78 97 08/15/20 11:49 75 115/56 08/15/20 11:47 84 97 08/15/20 11:42 76 97 08/15/20 11:37 81 95 08/15/20 11:32 74 97 08/15/20 11:27 85 98 08/15/20 11:20 81 117/59 08/15/20 11:16 84 95 08/15/20 11:11 89 97 08/15/20 11:06 82 97 08/15/20 11:01 82 96 08/15/20 10:56 96 H 96 08/15/20 10:51 79 97 08/15/20 10:49 80 107/68 08/15/20 10:46 83 97 08/15/20 10:41 82 96 06 10:36 91 H 97 08/15/20 10:31 83 95 08/15/20 10:26 82 95 08/15/20 10:21 76 96 06 10:19 80 129/60 08/15/20 10:16 85 95 06 10:11 84 95 06 10:06 80 94 06 10:01 79 94 06 09:56 81 96 06 09:51 76 96 08/15/20 09:50 79 136/61 06 09:46 84 95 06/23/21 09:41 82 95 08/15/20 09:36 81 96 08/15/20 09:31 81 96 08/15/20 09:26 84 96 08/15/20 09:19 82 121/56 98 08/15/20 09:14 76 96 08/15/20 09:09 80 97 08/15/20 09:04 80 95 08/15/20 08:59 81 97 08/15/20 08:54 90 96 08/15/20 08:50 78 101/59 08/15/20 08:49 80 96 08/15/20 08:44 83 96 08/15/20 08:39 82 96 08/15/20 08:34 86 97 08/15/20 08:29 85 97 08/15/20 08:24 82 96 08/15/20 08:19 88 105/57 97 08/15/20 08:14 82 95 Intake and Output 08/15/20 08/16/20 08/16/20 23:59 07:59 15:59 Intake Total 50 420 Output Total 200 550 Balance -150 -130 Intake: IV 50 ANCEF/NS 1 GM/50 ML 1 gm 50 In 50 ml @ 100 mls/hr IV Q8H [facility] Rx#:[id number] Intake, Free Water 420 Output: Urine 200 550 Indwelling Catheter 550 Other: Total, Output Amount 550 # Voids Indwelling Catheter 1 - Exam Breasts: Present: normal, Cardiovascular: Present: Regular rate Lungs: Present: Clear to auscultation, Normal air movement Abdomen: Present: normal appearance, soft, normal bowel sounds Vulva: both: normal Uterus: Present: normal, firm, fundal height below umbilicus Extremities: Present: normal Deep Tendon Reflex Grade: Normal +2 Incision: Present: normal, dry, dressed - Labs Labs: Abnormal lab results 08/16/20 Range/Units 05:08 Hgb 9.6 L (10.1-14.3) gm/dl Hct 28.7 L (30.3-42.9) %
--- NOTE | 2020-08-16 09:42 | Post Anesthesia Evaluation ---
- Post Anesthesia Evaluation Patient Participated: Yes Airway Patent: Yes Stable Respiratory Function: Yes Nausea/Vomiting: No Temp > 96.8F: Yes Pain Manageable: Yes Adequeate Hydration: Yes Anesthesia Complications: No Block Receding Appropriately: Yes Patient on Ventilator: No
[2020-08-16] MEDS ORDERED: FERROUS SULFATE 325 MG TAB PO SCH (10:00)
[2020-08-16] MEDS: IBUPROFEN 800 MG TAB PO PRN (18:57)
[2020-08-17] MEDS: IBUPROFEN 800 MG TAB PO PRN (07:39)
--- NOTE | 2020-08-17 08:02 | Discharge Summary ---
Providers - Providers Date of Admission: 08/13/20 16:42 Date of discharge: 08/17/20 (pt desires discharge home) Attending physician: BETSY RUSH 08/15/20 20:39 Consult to Human Service Worker [CONS] Routine Reason For Exam: Primary care physician: BETSY RUSH Hospitalization Reason for admission: induction of labor, IUP at term Delivery: Procedure: section, bilateral tubal ligation, primary low transverse Episiotomy: none Laceration: none Incision: normal, dry, intact Other procedures: tubal ligation complications: none Discharge diagnosis: IUP at term delivered Catherine baby: female Condition at discharge: Good Disposition: DC-01 TO HOME OR SELFCARE Plan - Discharge Medications Prescriptions: Docusate Sodium [Colace] 100 mg PO BID PRN #60 capsule PRN Reason: Constipation Ferrous Sulfate [Feosol 325 MG tab] 325 mg PO QDAY #60 tablet Ibuprofen [Motrin 800 MG tab] 800 mg PO Q8HR PRN #30 tablet PRN Reason: Pain, Moderate (4-6) oxyCODONE /ACETAMINOPHEN [Percocet 5/325] 1 tab PO Q4HR #30 tab - Provider Discharge Summary Activity: routine, no sex for 6 weeks, no heavy lifting 4 weeks, no strenuous exercise Diet: routine Instructions: routine Additional instructions: [] Smoking cessation referral if applicable(refer to patient education folder for contact #) [] Refer to [facility] Booklet Call your doctor immediately for: * Fever > 100.5 * Heavy vaginal bleeding ( >1 pad per hour) * Severe persistent headache * Shortness of breath * Reddened, hot, painful area to leg or breast * Drainage or odor from incision. * Keep incision clean and dry at all times and follow doctor's instructions re garding bathing/showering Congratulations!! Please call [phone] and schedule your appointment to have your incision checked in 1 week. Thank you! - Follow up plan Follow up: BETSY RUSH MD [Primary Care Provider] - 7 Days
[2020-08-17] MEDS ORDERED: FAMOTIDINE 20 MG TAB PO SCH (11:00)
[2020-08-17 12:55] VITALS: BP 112/60
== END 2020-08-17 13:45 | disposition home or self-care (01) | DRG 785 ==
LOC: TRG 14:35 → LD 14:38 → TRG 16:42 → LD 16:42 → OB 08-15 19:58
PROVIDERS: ADMIT Obstetrics & Gynecology; ATTEND Obstetrics & Gynecology
PROC: 10D00Z1 Extraction of Products of Conception, Low, Open Approach (ICD-10-PCS; principal; 2020-08-15)
PROC: 0UT70ZZ Resection of Bilateral Fallopian Tubes, Open Approach (ICD-10-PCS; 2020-08-15)
PROC: 3E0234Z Introduction of Serum, Toxoid and Vaccine into Muscle, Percutaneous Approach (ICD-10-PCS; 2020-08-15)
PROC: 3E0234Z Introduction of Serum, Toxoid and Vaccine into Muscle, Percutaneous Approach (ICD-10-PCS; 2020-08-16)
DX: O99.214 Obesity complicating childbirth (principal); O99.62 Diseases of the digestive system complicating childbirth; O99.344 Other mental disorders complicating childbirth; O26.893 Other specified pregnancy related conditions, third trimester; E66.01 Morbid (severe) obesity due to excess calories; K21.9 Gastro-esophageal reflux disease without esophagitis; Z20.822 Contact with and (suspected) exposure to COVID-19; O61.9 Failed induction of labor, unspecified; Z3A.39 39 weeks gestation of pregnancy; Z67.91 Unspecified blood type, Rh negative; Z37.0 Single live birth; Z30.2 Encounter for sterilization; Z90.49 Acquired absence of other specified parts of digestive tract; Z79.82 Long term (current) use of aspirin; Z79.899 Other long term (current) drug therapy; Z23 Encounter for immunization
CPT/HCPCS: 36415; 59200; 76815; 85014; 85018; 85027; 85460; 85461; 86592; 86850; 86870; 86900; 86901; 88302; 88307; G0378; J0690; J1100; J1885; J2370; J2405; J2590; J2765; J2790; J3490; J7120; J7121; U0003

== ENCOUNTER 2020-09-04 03:25 | Emergency (ER) | payer BC, MEDICAID ==
[2020-09-04 04:07] LABS: Basophils % (Auto) 0.6 % (0.0-1.8); Eosinophils # (Auto) 0.1 K/mm3 (0.0-0.4); Eosinophils % (Auto) 1.4 % (0.0-4.3); Hematocrit 32.5 % (30.3-42.9); Hemoglobin 10.6 gm/dl (10.1-14.3); Lymphocytes # (Auto) 1.2 K/mm3 (1.2-5.4); Lymphocytes % (Auto) 18.5 % (13.4-35.0); Mean Corpuscular HGB Conc 33 % (30-34); Mean Corpuscular Volume 75 fl (79-97); Monocytes # (Auto) 0.4 K/mm3 (0.0-0.8); Platelet Count 307 K/mm3 (140-440); Red Blood Count 4.33 M/mm3 (3.65-5.03); Red Cell Distribution Width 16.6 % (13.2-15.2)
[2020-09-04 04:33] LABS: Blood Urea Nitrogen 16 mg/dL (7-17); Calcium 8.9 mg/dL (8.4-10.2); Hemolysis Index 1
[2020-09-04 04:35] LABS: BUN/Creatinine Ratio 23
[2020-09-04 05:18] VITALS: BP 109/61
--- NOTE | 2020-09-04 05:29 | Emergency Department Report ---
ED HPI - General Chief complaint: Vaginal Bleeding Stated complaint: VAGINAL BLEEDING Time Seen by Provider: 09/04/20 03:36 Source: patient, EMS Mode of arrival: Stretcher Limitations: No Limitations - History of Present Illness Initial comments: Patient is a 45-year-old female who is 3 weeks status post . Patient states tonight while lying in bed she passed 2 large blood clots of blood. She has not had any bleeding up to this point. These are painless. Denies dysuria or abdominal pain. - Related Data Home Medications Medication Instructions Recorded Confirmed Last Taken Aspirin [Aspirin BABY CHEW TAB] 81 mg PO QDAY 08/13/20 08/13/20 08/12/20 Benadryl 1 tab PO PRN PRN 08/13/20 08/13/20 08/12/20 Pepcid 1 tab PO PRN PRN 08/13/20 08/13/20 08/12/20 Vit-Fe Fumar-FA [ 1 tab PO QDAY 08/13/20 08/13/20 08/12/20 Vitamin] Xanax TAB 1 tab PO PRN PRN 08/13/20 08/13/20 08/10/20 Previous Rx's Medication Instructions Recorded Last Taken Type Docusate Sodium [Colace] 100 mg PO BID PRN #60 capsule 08/15/20 Unknown Rx Ferrous Sulfate [Feosol 325 MG tab] 325 mg PO QDAY #60 tablet 08/15/20 Unknown Rx Ibuprofen [Motrin 800 MG tab] 800 mg PO Q8HR PRN #30 tablet 08/15/20 Unknown Rx oxyCODONE /ACETAMINOPHEN [Percocet 1 tab PO Q4HR #30 tab 08/15/20 Unknown Rx 5/325] Allergies Allergy/AdvReac Type Severity Reaction Status Date / Time No Known Allergies Allergy Verified 05/03/20 11:12 ED Review of Systems ROS: Stated complaint: VAGINAL BLEEDING Other details as noted in HPI Comment: All other systems reviewed and negative ED Past Medical Hx - Past Medical History Previous Medical History?: Yes Hx Hypertension: No Hx Diabetes: No Hx Deep Vein Thrombosis: No Hx Renal Disease: No Hx Sickle Cell Disease: No Hx Seizures: No Hx Psychiatric Treatment: Yes (anxiety) Hx Asthma: No Hx COPD: No Hx HIV: No - Surgical History Past Surgical History?: Yes Additional Surgical History: T&A, Gallbladder removed, c -section - Social History Smoking Status: Never Smoker Substance Use Type: None - Medications Home Medications: Home Medications Medication Instructions Recorded Confirmed Last Taken Type Aspirin [Aspirin BABY CHEW TAB] 81 mg PO QDAY 08/13/20 08/13/20 08/12/20 History Benadryl 1 tab PO PRN PRN 08/13/20 08/13/20 08/12/20 History Pepcid 1 tab PO PRN PRN 08/13/20 08/13/20 08/12/20 History Vit-Fe Fumar-FA [ 1 tab PO QDAY 08/13/20 08/13/20 08/12/20 History Vitamin] Xanax TAB 1 tab PO PRN PRN 08/13/20 08/13/20 08/10/20 History Docusate Sodium [Colace] 100 mg PO BID PRN #60 capsule 08/15/20 Unknown Rx Ferrous Sulfate [Feosol 325 MG tab] 325 mg PO QDAY #60 tablet 08/15/20 Unknown Rx Ibuprofen [Motrin 800 MG tab] 800 mg PO Q8HR PRN #30 tablet 08/15/20 Unknown Rx oxyCODONE /ACETAMINOPHEN [Percocet 1 tab PO Q4HR #30 tab 08/15/20 Unknown Rx 5/325] ED Physical Exam - General Limitations: No Limitations General appearance: alert, in no apparent distress - Head Head exam: Present: atraumatic, normocephalic - Eye Eye exam: Present: normal appearance - ENT ENT exam: Present: mucous membranes moist - Neck Neck exam: Present: normal inspection - Respiratory Respiratory exam: Present: normal lung sounds bilaterally. Absent: respiratory distress, wheezes, rales, rhonchi - Cardiovascular Cardiovascular Exam: Present: regular rate, normal rhythm, normal heart sounds. Absent: systolic murmur, diastolic murmur, rubs, gallop - GI/Abdominal GI/Abdominal exam: Present: soft, normal bowel sounds. Absent: distended, tenderness, guarding, rebound - Extremities Exam Extremities exam: Present: normal inspection - Back Exam Back exam: Present: normal inspection - Neurological Exam Neurological exam: Present: alert, oriented X3 - Psychiatric Psychiatric exam: Present: normal affect, normal mood - Skin Skin exam: Present: warm, dry, intact, normal color. Absent: rash ED Course Vital Signs 09/04/20 09/04/20 09/04/20 03:38 04:00 05:00 Temperature 98.3 F Pulse Rate 78 73 67 Respiratory 16 14 16 Rate Blood Pressure 114/59 109/61 Blood Pressure 116/61 [Right] O2 Sat by Pulse 100 98 98 Oximetry ED Medical Decision Making - Lab Data Result diagrams: 09/04/20 03:49 09/04/20 03:49 Lab Results 09/04/20 09/04/20 09/04/20 Range/Units 03:49 03:49 03:49 WBC 6.5 (4.5-11.0) K/mm3 RBC 4.33 (3.65-5.03) M/mm3 Hgb 10.6 (10.1-14.3) gm/dl Hct 32.5 (30.3-42.9) % MCV 75 L (79-97) fl MCH 25 L (28-32) pg MCHC 33 (30-34) % RDW 16.6 H (13.2-15.2) % Plt Count 307 (140-440) K/mm3 Lymph % (Auto) 18.5 (13.4-35.0) % [place] % (Auto) 6.0 (0.0-7.3) % Eos % (Auto) 1.4 (0.0-4.3) % Baso % (Auto) 0.6 (0.0-1.8) % Lymph # (Auto) 1.2 (1.2-5.4) K/mm3 [place] # (Auto) 0.4 (0.0-0.8) K/mm3 Eos # (Auto) 0.1 (0.0-0.4) K/mm3 Baso # (Auto) 0.0 (0.0-0.1) K/mm3 Seg Neutrophils % 73.5 H (40.0-70.0) % Seg Neutrophils # 4.8 (1.8-7.7) K/mm3 Sodium 141 (137-145) mmol/L Potassium 4.5 (3.6-5.0) mmol/L Chloride 105.9 (98-107) mmol/L Carbon Dioxide 26 (22-30) mmol/L Anion Gap 14 mmol/L BUN 16 (7-17) mg/dL Creatinine 0.7 (0.6-1.2) mg/dL Estimated GFR > 60 ml/min BUN/Creatinine Ratio 23 % Glucose 87 (65-100) mg/dL Calcium 8.9 (8.4-10.2) mg/dL HCG, Qual Negative (Negative) - Radiology Data Patient ultrasound shows just a small scant amount of fluid in the uterus but otherwise no abnormality - Medical Decision Making Patient likely with is just some simple menstrual bleeding. Patient's hemoglobin normal vital signs within normal limits and the patient is stable for discharge. Critical care attestation.: If time is entered above; I have spent that time in minutes in the direct care of this critically ill patient, excluding procedure time. ED Disposition Clinical Impression: Abnormal vaginal bleeding Disposition: DC- TO HOME OR SELFCARE Is pt being admited?: No Does the pt Need Aspirin: No Condition: Stable Instructions: Abnormal Uterine Bleeding, [id number] Referrals: PRIMARY CARE, [Primary Care Provider] - 3-5 Days Time of Disposition: 05:29
--- NOTE | 2020-09-04 05:47 | Ultrasound Report ---
ULTRASOUND PELVIS INDICATION / CLINICAL INFORMATION: abnl vag bleeding 3 weeks s/p CSec. TECHNIQUE: Transabdominal. Duplex Color Doppler used: Yes. COMPARISON: Ultrasound from 08/14/2020 FINDINGS: UTERUS: Uterus is enlarged, measuring 12.6 x 7.6 x 8.6 cm. No discrete myometrial mass. The endometri al stripe is thickened, measuring 25 mm. Small amount of fluid in the endometrial cavity. No abnormal Doppler flow. RIGHT ADNEXA: Right ovary measures 4 x 2.9 x 3.8 cm. No significant ovarian cyst or mass. Normal colo r Doppler blood flow. LEFT ADNEXA: Not visualized URINARY BLADDER: No significant abnormality. FREE FLUID: None. ADDITIONAL FINDINGS: None. IMPRESSION: 1. Thickened endometrial complex in a uterus. It is difficult to distinguish a uterus containing clots from retained products of conception, though there is no abnormal Doppler maik w identified in the endometrial cavity. Clinical correlation is recommended. 2. Unremarkable right ovary. 3. Nonvisualization of the left ovary. Signer Name: Anton Chong MD Signed: 09/04/2020 5:43 AM Workstation Name: [id number]
== END 2020-09-04 05:51 | disposition home or self-care (01) ==
LOC: ED 03:25
DX: O72.2 Delayed and secondary postpartum hemorrhage (principal); F41.9 Anxiety disorder, unspecified; Z98.890 Other specified postprocedural states; Z79.1 Long term (current) use of non-steroidal anti-inflammatories (NSAID); Z79.899 Other long term (current) drug therapy
CPT/HCPCS: 36415; 76856; 80048; 84703; 85025